=== PATIENT | female | born 1975 | race African-American/Black ===

== ENCOUNTER 2016-04-04 09:46 | Inpatient (IN) | payer OTHER ==
[2016-04-04 17:24] VITALS: BMI 34.9
--- NOTE | 2016-04-04 18:16 | HP ---
Admission [facility] - [facility] Chief Complaint: I WANT TO GO TO REHAB Allergies/Adverse Reactions: Allergies Allergy/AdvReac Type Severity Reaction Status Date / Time hydromorphone HCl Allergy PALPITATION Verified 04/04/16 17:11 [From Dilaudid] History of Present Illness: 41 YEARS OLD FEMALE WITH LONG HISTORY OF MARIJUANA AND NICOTINE DEPENDENCE, HAS ASTHMA HYPERTENSION HYPERTHYROID DIABETES II CVA 2013 WEAKNESS OF THE RIGHT SIDE WEAR EYE GLASSES FOR READING DENIES MENTAL ILLNESS IS ADMITTED TO REHAB Exam Limitations: No Limitations - Ebola screening Have you traveled outside of the country in the last 21 days: No Have you had contact with anyone from an Ebola affected area: No Have you been sick,other than usual withdrawal symptoms: No Do you have a fever: No - Review of Systems Constitutional: Weight Stable EENT: reports: Other (EYE GLASSES) Respiratory: reports: No Symptoms reported Cardiac: reports: No Symptoms Reported GI: reports: No Symptoms Reported : reports: No Symptoms Reported, Other (HISTORY OF KIDNEY STONE 2012 - ) Musculoskeletal: reports: No Symptoms Reported Integumentary: reports: No Symptoms Reported Neuro: reports: No Symptoms reported Endocrine: reports: Intolerance to Heat Hematology: reports: No Symptoms Reported Psychiatric: reports: Judgement Intact, Mood/Affect Appropiate, Orientated x3 Other Systems: Reviewed and Negative Patient History - Patient Medical History Hx Anemia: No Hx Asthma: Yes Hx Chronic Obstructive Pulmonary Disease (COPD): No Hx Cancer: No Hx Cardiac Disorders: No Hx Congestive Heart Failure: No Hx Hypertension: Yes Hx Hypercholesterolemia: No Hx Pacemaker: No HX Cerebrovascular Accident: Yes (10/2013) Hx Seizures: No Hx Dementia: No Hx Diabetes: Yes Hx Gastrointestinal Disorders: No Hx Liver Disease: No Hx Genitourinary Disorders: Yes ( KIDNEY STONES 2012) Hx Sexually Transmitted Disorders: No Hx Renal Disease (ESRD): No Hx Thyroid Disease: Yes (Graves disease, hyperthyroidism) Hx Human Immunodeficiency Virus (HIV): No Hx Hepatitis C: No Hx Depression: No Hx Suicide Attempt: No Hx Bipolar Disorder: No Hx Schizophrenia: No - Patient Surgical History Past Surgical History: Yes Hx Neurologic Surgery: No Hx Cataract Extraction: No Hx Cardiac Surgery: No Hx Lung Surgery: No Hx Breast Surgery: No Hx Breast Biopsy: No Hx Abdominal Surgery: Yes (HERNIA) Hx Appendectomy: No Hx Cholecystectomy: No Hx Genitourinary Surgery: No Hx Section: Yes (2014, 2012, 2010, 2004, 2001, 1993, 1989) Hx Orthopedic Surgery: No Hx Hysterectomy: No Anesthesia Reaction: No - PPD History Previous Implant?: Yes Documented Results: Negative w/o proof Implanted On Prior R Admission?: No PPD to be Administered?: Yes - Reproductive History Patient is a Female of Child Bearing Age (11 -55 yrs old): Yes Last Menstrual Period: 03/26/16 Patient : No - Smoking Cessation Smoking history: Former smoker Have you smoked in the past 12 months: No Aproximately how many cigarettes per day: 0 Cigars Per Day: 0 Hx Chewing Tobacco Use: No Initiated information on smoking cessation: No 'Breaking Loose' booklet given: 04/04/16 - Substance & Tx. History Hx Alcohol Use: No Hx Substance Use: Yes Substance Use Type: Marijuana Hx Substance Use Treatment: Yes - Substances Abused Marijuana/Hashish Route: Smoking Frequency: 3-6 times per week Amount used: JOINTS X 3 Age of first use: 12 Date of Last Use: 03/30/16 Family Disease History - Family Disease History Family Disease History: Other: Father (htn) Admission Physical Exam S - Vital Signs Vital Signs: Vital Signs - 24 hr 04/04/16 17:22 Temperature 97.0 F L Pulse Rate 83 Respiratory 20 Rate Blood Pressure 141/85 - Physical General Appearance: Yes: No Apparent Distress, Nourished, Appropriately Dressed HEENTM: Yes: Hearing grossly Normal, Normal ENT Inspection, Normocephalic, Normal Voice Respiratory: Yes: Chest Non-Tender, Lungs Clear, Normal Breath Sounds, No Respiratory Distress, No Accessory Muscle Use Neck: Yes: Supple, Trachea in good position Breast: Yes: Breasts Symetrical Cardiology: Yes: Regular Rhythm, Regular Rate, S1, S2 Abdominal: Yes: Non Tender, Soft Genitourinary: Yes: Within Normal Limits Back: Yes: Normal Inspection Musculoskeletal: Yes: full range of Motion, Gait Steady Extremities: Yes: Normal Inspection, Normal Range of Motion, Non-Tender Neurological: Yes: Fully Oriented, Alert, Motor Strength 5/5, Normal Mood/Affect , Normal Response Integumentary: Yes: Normal Color, Warm Lymphatic: Yes: Within Normal Limits - Diagnostic (1) Cerebrovascular accident Current Visit: Yes Status: Chronic Comment: 2014 RIGHT SIDE WEAKNESS CANE (2) HTN (hypertension) Current Visit: Yes Status: Acute Qualifiers: Hypertension type: essential hypertension Qualified Code(s): I10 - Essential (primary) hypertension (3) Hyperthyroidism Current Visit: Yes Status: Acute (4) Cannabis dependence, uncomplicated Current Visit: Yes Status: Acute (5) Asthma Current Visit: Yes Status: Acute Qualifiers: Asthma severity: mild intermittent Asthma complication type: with status asthmaticus Qualified Code(s): J45.22 - Mild intermittent asthma with status asthmaticus Cleared for Admission S - Detox or Rehab [facility] Level of Care: Observation Bed Claeared for Rehab Admission: Yes [facility] Breath Alcohol Content Breath Alcohol Content: 0 Urine Pregancy Test - Result Urine Test Results: Negative- NO Line Present Urine Drug Screen - Control Is Test Valid: Yes - Results Drug Screen Negative: Yes
[2016-04-04] MEDS ORDERED: MENTHOL/PHENOL 1 EACH UD MM PRN (18:34)
[2016-04-04] MEDS ORDERED: P-EPHED 60MG/TRIPROLIDI 2.5MG TABLET PO PRN (18:34)
[2016-04-04] MEDS ORDERED: MAGNESIUM HYDROX 2400MG/30ML ORAL SUSPENSION 30 ML CUP PO PRN (18:34)
[2016-04-04] MEDS ORDERED: guaiFENesin/D-METHORPHAN HB 10 ML UNIT-DOSE CUPS PO PRN (18:34)
[2016-04-04] MEDS ORDERED: MAG HYDROX/AL HYDROX/SIMETH 30 ML UNIT-DOSE CUP PO PRN (18:34)
[2016-04-04] MEDS ORDERED: LOPERAMIDE HCL 2 MG CAPSULE PO PRN (18:34)
[2016-04-04] MEDS ORDERED: MAGNESIUM CITRATE 300 ML BOTTLE PO PRN (18:34)
[2016-04-04] MEDS ORDERED: hydrOXYzine PAMOATE 50 MG CAPSULE (FP) PO PRN (18:34)
[2016-04-04] MEDS ORDERED: ALBUTEROL SO4 6.7 GM HFA INHALER IH PRN (18:36)
[2016-04-04] MEDS ORDERED: ALBUTEROL SO4 2.5/IPRATROPIUM 0.5 INH SOL 3 ML VIAL.NEB. NEB PRN (18:36)
[2016-04-04] MEDS ORDERED: TUBERCULIN PPD 5 TU/0.1ML VIAL ID ONE (20:39)
[2016-04-04] MEDS: METHIMAZOLE 10 MG TABLET (FP) PO SCH (21:37)
[2016-04-04] MEDS: THIAMINE HCL 100 MG TABLET (FP) PO SCH (21:37)
[2016-04-04] MEDS: INSULIN DETEMIR 100 UNITS/ML MDV SQ SCH (21:39)
[2016-04-04] MEDS: INSULIN SLIDING SCALE (NOVOLOG) 1 VIAL SQ SCH (22:42)
[2016-04-04 23:18] LABS: URINE APPEARANCE SLCLOUDY; URINE BILIRUBIN NEGATIVE (NEGATIVE); URINE BLOOD NEGATIVE (NEGATIVE); URINE COLOR YELLOW; URINE GLUCOSE (UA) 3+ (NEGATIVE); URINE KETONE NEGATIVE (NEGATIVE); URINE NITRITE NEGATIVE (NEGATIVE); URINE PROTEIN NEGATIVE (NEGATIVE); URINE UROBILINOGEN NEGATIVE E.U./dl (0.2-1.0)
[2016-04-04 23:20] LABS: URINE LEUK ESTERASE 1+ (NEGATIVE)
[2016-04-04 23:23] LABS: URINE MUCUS MANY; URINE RBC 1 /hpf (0-3); URINE WBC 9 /hpf (3-5)
[2016-04-05] MEDS: METHIMAZOLE 10 MG TABLET (FP) PO SCH ×3 (06:16→21:32)
[2016-04-05] MEDS: glipiZIDE 10 MG TABLET (FP) PO SCH ×2 (06:16→16:32)
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
[2016-04-05] MEDS: INSULIN SLIDING SCALE (NOVOLOG) 1 VIAL SQ SCH ×4 (06:56→21:35)
[2016-04-05] MEDS: ASPIRIN 81 MG CHEWABLE TABLETS PO SCH (09:46)
[2016-04-05] MEDS: PRENATAL VITAMINS W/ FOLIC ACID TABLET (FP) PO SCH (09:47)
[2016-04-05] MEDS: NIFEdipine E.R. 90 MG TABLET (FP) PO SCH (09:47)
[2016-04-05 10:24] LABS: ALBUMIN 3.1 g/dl (3.4-5.0); ANION GAP 8 (8-16); BILIRUBIN,TOTAL 0.3 mg/dL (0.2-1.0); CO2 29 mmol/L (21-32); GLUCOSE,RANDOM 184 mg/dL (74-106); SGOT/AST 14 U/L (15-37); SGPT/ALT 23 U/L (12-78); TOT PROT 6.8 g/dl (6.4-8.2)
[2016-04-05 10:25] LABS: MCH 25.5 pg (25.7-33.7); MCHC 31.3 g/dl (32.0-36.0); MEAN CELL VOLUME 81.2 fl (80-96); MEAN PLT VOLUME 8.6 fl (7.5-11.1); PLATELET COUNT 218 K/MM3 (134-434); RDW 13.5 % (11.6-15.6); WHITE BLOOD COUNT 5.6 K/mm3 (4.0-10.0)
[2016-04-05 10:26] LABS: ALK PHOS 79 U/L (45-117); CALCIUM 9.1 mg/dL (8.5-10.1); CREATININE 0.6 mg/dL (0.55-1.02)
[2016-04-05 11:04] LABS: HIV 1 & 2 AB NEGATIVE; HIV 1 AGp24 NEGATIVE
[2016-04-05 13:11] LABS: FREE T4 1.45 ng/dl (0.76-1.46); T3 UPTAKE 36.3 % (30-39); THYROID STIMULATING HORMONE < 0.01 uIU/ml (0.358-3.74)
[2016-04-05] MEDS ORDERED: INSULIN (NOVOLOG) ASPART 100 UNITS/ML 10ML VIAL ONE ×2 (16:32→21:34)
--- NOTE | 2016-04-05 17:43 | EKG ---
Test Reason : Blood Pressure : / mmHG Vent. Rate : 081 BPM Atrial Rate : 081 BPM P-R Int : 150 ms QRS Dur : 080 ms QT Int : 388 ms P-R-T Axes : 054 038 019 degrees QTc Int : 450 ms NORMAL SINUS RHYTHM NORMAL ECG WHEN COMPARED WITH ECG OF 27-NOV-2013 16:32, NO SIGNIFICANT CHANGE WAS FOUND Confirmed by ABDULLAHI DAMON MD ([id number]) on 04/05/2016 5:43:23 PM Referred By: Confirmed By:ABDULLAHI DAMON MD
[2016-04-05] MEDS: ACETAMINOPHEN 325 MG TABLET (FP) PO PRN (20:16)
[2016-04-05] MEDS: THIAMINE HCL 100 MG TABLET (FP) PO SCH (21:32)
[2016-04-05] MEDS: INSULIN DETEMIR 100 UNITS/ML MDV SQ SCH (21:35)
[2016-04-06] MEDS: METHIMAZOLE 10 MG TABLET (FP) PO SCH ×3 (06:24→21:21)
[2016-04-06] MEDS: glipiZIDE 10 MG TABLET (FP) PO SCH ×2 (06:24→16:32)
[2016-04-06] MEDS: INSULIN SLIDING SCALE (NOVOLOG) 1 VIAL SQ SCH ×4 (06:25→21:23)
[2016-04-06] MEDS: ASPIRIN 81 MG CHEWABLE TABLETS PO SCH (10:03)
[2016-04-06] MEDS: NIFEdipine E.R. 90 MG TABLET (FP) PO SCH (10:03)
[2016-04-06] MEDS: PRENATAL VITAMINS W/ FOLIC ACID TABLET (FP) PO SCH (10:04)
[2016-04-06] MEDS ORDERED: INSULIN (NOVOLOG) ASPART 100 UNITS/ML 10ML VIAL ONE ×3 (11:40→21:21)
[2016-04-06] MEDS: THIAMINE HCL 100 MG TABLET (FP) PO SCH (21:21)
[2016-04-06] MEDS: INSULIN DETEMIR 100 UNITS/ML MDV SQ SCH (21:22)
[2016-04-07] MEDS: METHIMAZOLE 10 MG TABLET (FP) PO SCH ×3 (06:25→21:31)
[2016-04-07] MEDS: glipiZIDE 10 MG TABLET (FP) PO SCH ×2 (07:26→17:04)
[2016-04-07] MEDS: INSULIN SLIDING SCALE (NOVOLOG) 1 VIAL SQ SCH ×4 (07:27→21:28)
[2016-04-07] MEDS: NIFEdipine E.R. 90 MG TABLET (FP) PO SCH (09:55)
[2016-04-07] MEDS: ASPIRIN 81 MG CHEWABLE TABLETS PO SCH (09:55)
[2016-04-07] MEDS: PRENATAL VITAMINS W/ FOLIC ACID TABLET (FP) PO SCH (09:55)
[2016-04-07] MEDS: NICOTINE 21 MG/24 HOURS TOPICAL PATCH TD SCH (11:59)
[2016-04-07] MEDS ORDERED: INSULIN (NOVOLOG) ASPART 100 UNITS/ML 10ML VIAL ONE ×3 (12:01→22:11)
[2016-04-07] MEDS ORDERED: PT OWN MED DRAWER 7, Y5N ONE (19:43)
[2016-04-07] MEDS: THIAMINE HCL 100 MG TABLET (FP) PO SCH (21:29)
[2016-04-07] MEDS: INSULIN DETEMIR 100 UNITS/ML MDV SQ SCH (21:31)
[2016-04-08] MEDS: INSULIN SLIDING SCALE (NOVOLOG) 1 VIAL SQ SCH ×4 (06:03→21:12)
[2016-04-08] MEDS: METHIMAZOLE 10 MG TABLET (FP) PO SCH ×3 (06:04→21:12)
[2016-04-08] MEDS: glipiZIDE 10 MG TABLET (FP) PO SCH ×2 (06:04→16:58)
[2016-04-08] MEDS: NICOTINE 21 MG/24 HOURS TOPICAL PATCH TD SCH (09:58)
[2016-04-08] MEDS: ASPIRIN 81 MG CHEWABLE TABLETS PO SCH (09:58)
[2016-04-08] MEDS: NIFEdipine E.R. 90 MG TABLET (FP) PO SCH (09:58)
[2016-04-08] MEDS: PRENATAL VITAMINS W/ FOLIC ACID TABLET (FP) PO SCH (09:58)
[2016-04-08] MEDS: INSULIN DETEMIR 100 UNITS/ML MDV SQ SCH (21:12)
[2016-04-08] MEDS: THIAMINE HCL 100 MG TABLET (FP) PO SCH (21:13)
[2016-04-08] MEDS ORDERED: INSULIN (NOVOLOG) ASPART 100 UNITS/ML 10ML VIAL ONE (22:17)
[2016-04-09] MEDS: glipiZIDE 10 MG TABLET (FP) PO SCH ×2 (06:57→16:44)
[2016-04-09] MEDS: INSULIN SLIDING SCALE (NOVOLOG) 1 VIAL SQ SCH ×4 (06:58→23:17)
[2016-04-09] MEDS: METHIMAZOLE 10 MG TABLET (FP) PO SCH ×3 (07:20→21:20)
[2016-04-09] MEDS: ASPIRIN 81 MG CHEWABLE TABLETS PO SCH (09:51)
[2016-04-09] MEDS: PRENATAL VITAMINS W/ FOLIC ACID TABLET (FP) PO SCH (09:51)
[2016-04-09] MEDS: NIFEdipine E.R. 90 MG TABLET (FP) PO SCH (09:51)
[2016-04-09] MEDS: NICOTINE 21 MG/24 HOURS TOPICAL PATCH TD SCH (09:52)
[2016-04-09] MEDS ORDERED: INSULIN (NOVOLOG) ASPART 100 UNITS/ML 10ML VIAL ONE ×2 (11:29→16:44)
[2016-04-09] MEDS: THIAMINE HCL 100 MG TABLET (FP) PO SCH (21:20)
[2016-04-09] MEDS: INSULIN DETEMIR 100 UNITS/ML MDV SQ SCH (21:22)
[2016-04-10] MEDS: glipiZIDE 10 MG TABLET (FP) PO SCH ×2 (07:09→16:44)
[2016-04-10] MEDS: METHIMAZOLE 10 MG TABLET (FP) PO SCH ×3 (07:09→21:15)
[2016-04-10] MEDS: INSULIN SLIDING SCALE (NOVOLOG) 1 VIAL SQ SCH ×4 (07:09→21:15)
[2016-04-10] MEDS: NICOTINE 21 MG/24 HOURS TOPICAL PATCH TD SCH (09:39)
[2016-04-10] MEDS: PRENATAL VITAMINS W/ FOLIC ACID TABLET (FP) PO SCH (09:39)
[2016-04-10] MEDS: NIFEdipine E.R. 90 MG TABLET (FP) PO SCH (09:39)
[2016-04-10] MEDS: ASPIRIN 81 MG CHEWABLE TABLETS PO SCH (09:39)
[2016-04-10] MEDS ORDERED: INSULIN (NOVOLOG) ASPART 100 UNITS/ML 10ML VIAL ONE ×2 (11:28→16:45)
[2016-04-10] MEDS: NAPROXEN 500 MG TABLET (FP) PO SCH (21:14)
[2016-04-10] MEDS: INSULIN DETEMIR 100 UNITS/ML MDV SQ SCH (21:16)
[2016-04-10] MEDS: THIAMINE HCL 100 MG TABLET (FP) PO SCH (21:16)
[2016-04-11] MEDS: METHIMAZOLE 10 MG TABLET (FP) PO SCH ×3 (06:05→21:23)
[2016-04-11] MEDS: glipiZIDE 10 MG TABLET (FP) PO SCH ×2 (06:05→16:57)
[2016-04-11] MEDS: INSULIN SLIDING SCALE (NOVOLOG) 1 VIAL SQ SCH ×4 (06:06→21:22)
[2016-04-11] MEDS: NIFEdipine E.R. 90 MG TABLET (FP) PO SCH (10:22)
[2016-04-11] MEDS: NAPROXEN 500 MG TABLET (FP) PO SCH ×2 (10:22→21:22)
[2016-04-11] MEDS: PRENATAL VITAMINS W/ FOLIC ACID TABLET (FP) PO SCH (10:22)
[2016-04-11] MEDS: ASPIRIN 81 MG CHEWABLE TABLETS PO SCH (10:22)
[2016-04-11] MEDS: NICOTINE 21 MG/24 HOURS TOPICAL PATCH TD SCH (10:22)
[2016-04-11] MEDS ORDERED: INSULIN (NOVOLOG) ASPART 100 UNITS/ML 10ML VIAL ONE (19:07)
[2016-04-11] MEDS: INSULIN DETEMIR 100 UNITS/ML MDV SQ SCH (21:22)
[2016-04-11] MEDS: THIAMINE HCL 100 MG TABLET (FP) PO SCH (21:22)
[2016-04-12] MEDS: METHIMAZOLE 10 MG TABLET (FP) PO SCH ×3 (06:41→21:17)
[2016-04-12] MEDS: INSULIN SLIDING SCALE (NOVOLOG) 1 VIAL SQ SCH ×4 (07:13→21:14)
[2016-04-12] MEDS: glipiZIDE 10 MG TABLET (FP) PO SCH ×2 (07:13→16:53)
[2016-04-12] MEDS: ASPIRIN 81 MG CHEWABLE TABLETS PO SCH (09:48)
[2016-04-12] MEDS: PRENATAL VITAMINS W/ FOLIC ACID TABLET (FP) PO SCH (09:48)
[2016-04-12] MEDS: NAPROXEN 500 MG TABLET (FP) PO SCH ×2 (09:48→21:14)
[2016-04-12] MEDS: NIFEdipine E.R. 90 MG TABLET (FP) PO SCH (09:48)
[2016-04-12] MEDS: NICOTINE 21 MG/24 HOURS TOPICAL PATCH TD SCH (09:51)
[2016-04-12] MEDS: THIAMINE HCL 100 MG TABLET (FP) PO SCH (21:14)
[2016-04-12] MEDS: INSULIN DETEMIR 100 UNITS/ML MDV SQ SCH (21:14)
[2016-04-13] MEDS: METHIMAZOLE 10 MG TABLET (FP) PO SCH ×3 (06:39→21:09)
[2016-04-13] MEDS: glipiZIDE 10 MG TABLET (FP) PO SCH ×2 (07:22→16:54)
[2016-04-13] MEDS: INSULIN SLIDING SCALE (NOVOLOG) 1 VIAL SQ SCH ×4 (07:22→21:08)
[2016-04-13] MEDS: PRENATAL VITAMINS W/ FOLIC ACID TABLET (FP) PO SCH (09:52)
[2016-04-13] MEDS: NAPROXEN 500 MG TABLET (FP) PO SCH ×2 (09:53→21:08)
[2016-04-13] MEDS: ASPIRIN 81 MG CHEWABLE TABLETS PO SCH (09:53)
[2016-04-13] MEDS: NIFEdipine E.R. 90 MG TABLET (FP) PO SCH (09:53)
[2016-04-13] MEDS: NICOTINE 21 MG/24 HOURS TOPICAL PATCH TD SCH (09:53)
[2016-04-13] MEDS ORDERED: INSULIN (NOVOLOG) ASPART 100 UNITS/ML 10ML VIAL ONE (11:49)
[2016-04-13] MEDS: THIAMINE HCL 100 MG TABLET (FP) PO SCH (21:08)
[2016-04-13] MEDS: INSULIN DETEMIR 100 UNITS/ML MDV SQ SCH (21:09)
[2016-04-14] MEDS: INSULIN SLIDING SCALE (NOVOLOG) 1 VIAL SQ SCH ×4 (06:57→21:26)
[2016-04-14] MEDS: glipiZIDE 10 MG TABLET (FP) PO SCH ×2 (06:57→16:45)
[2016-04-14] MEDS: METHIMAZOLE 10 MG TABLET (FP) PO SCH ×3 (06:57→21:24)
[2016-04-14] MEDS: NICOTINE 21 MG/24 HOURS TOPICAL PATCH TD SCH (09:52)
[2016-04-14] MEDS: NIFEdipine E.R. 90 MG TABLET (FP) PO SCH (09:52)
[2016-04-14] MEDS: NAPROXEN 500 MG TABLET (FP) PO SCH ×2 (09:52→21:24)
[2016-04-14] MEDS: ASPIRIN 81 MG CHEWABLE TABLETS PO SCH (09:52)
[2016-04-14] MEDS: PRENATAL VITAMINS W/ FOLIC ACID TABLET (FP) PO SCH (09:53)
[2016-04-14] MEDS: THIAMINE HCL 100 MG TABLET (FP) PO SCH (21:24)
[2016-04-14] MEDS ORDERED: INSULIN (NOVOLOG) ASPART 100 UNITS/ML 10ML VIAL ONE (21:24)
[2016-04-14] MEDS: INSULIN DETEMIR 100 UNITS/ML MDV SQ SCH (21:26)
[2016-04-15] MEDS: METHIMAZOLE 10 MG TABLET (FP) PO SCH ×3 (06:43→21:32)
[2016-04-15] MEDS: INSULIN SLIDING SCALE (NOVOLOG) 1 VIAL SQ SCH ×4 (07:22→21:35)
[2016-04-15] MEDS: glipiZIDE 10 MG TABLET (FP) PO SCH ×2 (07:22→16:44)
[2016-04-15] MEDS: NAPROXEN 500 MG TABLET (FP) PO SCH ×2 (10:04→21:32)
[2016-04-15] MEDS: NICOTINE 21 MG/24 HOURS TOPICAL PATCH TD SCH (10:04)
[2016-04-15] MEDS: NIFEdipine E.R. 90 MG TABLET (FP) PO SCH (10:04)
[2016-04-15] MEDS: PRENATAL VITAMINS W/ FOLIC ACID TABLET (FP) PO SCH (10:04)
[2016-04-15] MEDS: ASPIRIN 81 MG CHEWABLE TABLETS PO SCH (10:04)
[2016-04-15] MEDS: THIAMINE HCL 100 MG TABLET (FP) PO SCH (21:32)
[2016-04-15] MEDS ORDERED: INSULIN (NOVOLOG) ASPART 100 UNITS/ML 10ML VIAL ONE (21:32)
[2016-04-15] MEDS: diphenhydrAMINE HCL 50 MG CAPSULE PO PRN (21:33)
[2016-04-15] MEDS: INSULIN DETEMIR 100 UNITS/ML MDV SQ SCH (21:34)
[2016-04-16] MEDS: METHIMAZOLE 10 MG TABLET (FP) PO SCH ×3 (06:23→21:36)
[2016-04-16] MEDS: glipiZIDE 10 MG TABLET (FP) PO SCH ×2 (07:09→16:48)
[2016-04-16] MEDS: INSULIN SLIDING SCALE (NOVOLOG) 1 VIAL SQ SCH ×4 (07:09→21:35)
[2016-04-16] MEDS: ASPIRIN 81 MG CHEWABLE TABLETS PO SCH (10:08)
[2016-04-16] MEDS: PRENATAL VITAMINS W/ FOLIC ACID TABLET (FP) PO SCH (10:08)
[2016-04-16] MEDS: NAPROXEN 500 MG TABLET (FP) PO SCH ×2 (10:08→21:36)
[2016-04-16] MEDS: NIFEdipine E.R. 90 MG TABLET (FP) PO SCH (10:08)
[2016-04-16] MEDS: NICOTINE 21 MG/24 HOURS TOPICAL PATCH TD SCH (10:09)
[2016-04-16] MEDS: diphenhydrAMINE HCL 50 MG CAPSULE PO PRN (21:36)
[2016-04-16] MEDS: INSULIN DETEMIR 100 UNITS/ML MDV SQ SCH (21:36)
[2016-04-16] MEDS: THIAMINE HCL 100 MG TABLET (FP) PO SCH (21:36)
[2016-04-16] MEDS ORDERED: INSULIN (NOVOLOG) ASPART 100 UNITS/ML 10ML VIAL ONE (22:26)
[2016-04-17] MEDS: ACETAMINOPHEN 325 MG TABLET (FP) PO PRN (06:29)
[2016-04-17] MEDS: METHIMAZOLE 10 MG TABLET (FP) PO SCH ×3 (06:30→21:04)
[2016-04-17] MEDS: glipiZIDE 10 MG TABLET (FP) PO SCH ×2 (07:26→16:48)
[2016-04-17] MEDS: INSULIN SLIDING SCALE (NOVOLOG) 1 VIAL SQ SCH ×4 (07:26→21:06)
[2016-04-17] MEDS: NIFEdipine E.R. 90 MG TABLET (FP) PO SCH (10:13)
[2016-04-17] MEDS: NAPROXEN 500 MG TABLET (FP) PO SCH ×2 (10:13→21:04)
[2016-04-17] MEDS: NICOTINE 21 MG/24 HOURS TOPICAL PATCH TD SCH (10:13)
[2016-04-17] MEDS: PRENATAL VITAMINS W/ FOLIC ACID TABLET (FP) PO SCH (10:13)
[2016-04-17] MEDS: ASPIRIN 81 MG CHEWABLE TABLETS PO SCH (10:13)
[2016-04-17] MEDS ORDERED: INSULIN (NOVOLOG) ASPART 100 UNITS/ML 10ML VIAL ONE (11:57)
[2016-04-17] MEDS: THIAMINE HCL 100 MG TABLET (FP) PO SCH (21:04)
[2016-04-17] MEDS: diphenhydrAMINE HCL 50 MG CAPSULE PO PRN (21:04)
[2016-04-17] MEDS: INSULIN DETEMIR 100 UNITS/ML MDV SQ SCH (21:06)
[2016-04-18] MEDS: METHIMAZOLE 10 MG TABLET (FP) PO SCH ×3 (06:30→21:17)
[2016-04-18] MEDS: glipiZIDE 10 MG TABLET (FP) PO SCH ×2 (06:30→16:51)
[2016-04-18] MEDS: INSULIN SLIDING SCALE (NOVOLOG) 1 VIAL SQ SCH ×4 (06:31→21:18)
[2016-04-18] MEDS: ASPIRIN 81 MG CHEWABLE TABLETS PO SCH (10:08)
[2016-04-18] MEDS: PRENATAL VITAMINS W/ FOLIC ACID TABLET (FP) PO SCH (10:09)
[2016-04-18] MEDS: NIFEdipine E.R. 90 MG TABLET (FP) PO SCH (10:09)
[2016-04-18] MEDS: NICOTINE 21 MG/24 HOURS TOPICAL PATCH TD SCH (10:09)
[2016-04-18] MEDS: NAPROXEN 500 MG TABLET (FP) PO SCH ×2 (10:09→21:17)
[2016-04-18] MEDS ORDERED: INSULIN (NOVOLOG) ASPART 100 UNITS/ML 10ML VIAL ONE (21:16)
[2016-04-18] MEDS: diphenhydrAMINE HCL 50 MG CAPSULE PO PRN (21:17)
[2016-04-18] MEDS: THIAMINE HCL 100 MG TABLET (FP) PO SCH (21:17)
[2016-04-18] MEDS: INSULIN DETEMIR 100 UNITS/ML MDV SQ SCH (21:18)
[2016-04-19] MEDS: glipiZIDE 10 MG TABLET (FP) PO SCH ×2 (06:09→16:57)
[2016-04-19] MEDS: METHIMAZOLE 10 MG TABLET (FP) PO SCH ×3 (06:09→21:42)
[2016-04-19] MEDS: INSULIN SLIDING SCALE (NOVOLOG) 1 VIAL SQ SCH ×4 (06:38→21:44)
--- NOTE | 2016-04-19 07:53 | PN ---
Psychiatric Progress Note Vital Signs: Vital Signs Period Temp Pulse Resp BP Sys/Hernandez Pulse Ox Last 24 Hr 98.3 F 63-64 16-18 110-127/67-69 ROS: Asthma, HTN, CVA, Hyperthyroidism Current Medications: Active Medications Generic Name Dose Route Start Last Admin Trade Name Freq PRN Reason Stop Dose Admin Acetaminophen 650 mg 04/04/16 18:34 04/17/16 06:29 Tylenol - PO 650 mg Q4H PRN Administration PAIN Al Hydroxide/Mg Hydroxide 30 ml 04/04/16 18:34 04/07/16 12:01 Mylanta Oral Suspension - PO 30 ml Q6H PRN Administration DYSPEPSIA Albuterol Sulfate 0 puff 04/04/16 18:36 Ventolin Hfa Inhaler - IH Q4H PRN SHORT OF BREATH/WHEEZING Aspirin 81 mg 04/05/16 10:00 04/18/16 10:08 Asa - PO 81 mg DAILY HERBIE Administration Diphenhydramine HCl 50 mg 04/04/16 22:00 04/18/16 21:17 Benadryl - PO 50 mg HSMR1 PRN Administration INSOMNIA Eucalyptus/Menthol/Phenol/Sorbitol 1 each 04/04/16 18:34 Cepastat Lozenge - MM Q4H PRN SORE THROAT Glipizide 10 mg 04/05/16 07:00 04/19/16 06:09 Glucotrol - PO 10 mg BID@0700,1630 HERBIE Administration Guaifenesin 10 ml 04/04/16 18:34 Robitussin Dm - PO Q6H PRN COUGH Hydroxyzine Pamoate 50 mg 04/04/16 18:34 Vistaril - PO Q4H PRN AGITATION Insulin Aspart 1 vial 04/04/16 22:00 04/19/16 06:38 Novolog Vial Sliding Scale - SQ Not Given ACHS [facility] Protocol Insulin Detemir 10 units 04/04/16 22:00 04/18/16 21:18 Levemir Vial SQ 10 units HS HERBIE Administration Loperamide HCl 4 mg 04/04/16 18:34 Imodium - PO Q6H PRN DIARRHEA Magnesium Citrate 300 ml 04/04/16 18:34 04/12/16 21:17 Citroma - PO 300 ml Q48H PRN Administration CONSTIPATION Magnesium Hydroxide 30 ml 04/04/16 18:34 04/07/16 21:30 Milk Of Magnesia - PO 30 ml DAILY PRN Administration CONSTIPATION Methimazole 10 mg 04/04/16 22:00 04/19/16 06:09 Tapazole - PO 10 mg TID HERBIE Administration Naproxen 500 mg 04/10/16 22:00 04/18/16 21:17 Naprosyn - PO 500 mg BID HERBIE Administration Nicotine 21 mg 04/07/16 10:45 04/18/16 10:09 Nicoderm Patch - TD 21 mg DAILY HERBIE Administration Nifedipine 90 mg 04/05/16 10:00 04/18/16 10:09 Procardia Xl - PO 90 mg DAILY HERBIE Administration Multivit/Folic Acid/Iron 1 tab 04/05/16 10:00 04/18/16 10:09 Vitamins (Sjr) - PO 1 tab DAILY HERBIE Administration Pseudoephedrine/Triprolidine 1 combo 04/04/16 18:34 Actifed - PO TID PRN NASAL CONGESTION Thiamine HCl 100 mg 04/04/16 22:00 04/18/16 21:17 Vitamin B1 - PO 100 mg HS HERBIE Administration Psychiatric Treatment Plan - Problem List (1) Cannabis dependence, uncomplicated Current Visit: Yes (2) Asthma Current Visit: Yes Qualifiers: Asthma severity: mild intermittent Asthma complication type: with status asthmaticus Qualified Code(s): J45.22 - Mild intermittent asthma with status asthmaticus (3) HTN (hypertension) Current Visit: Yes Qualifiers: Hypertension type: essential hypertension Qualified Code(s): I10 - Essential (primary) hypertension (4) Hyperthyroidism Current Visit: Yes (5) Cerebrovascular accident Current Visit: Yes Comment: 2013 RIGHT SIDE WEAKNESS CANE (6) section Current Visit: No (7) Asthma attack Current Visit: No (8) UTI (lower urinary tract infection) Current Visit: No
[2016-04-19] MEDS: PRENATAL VITAMINS W/ FOLIC ACID TABLET (FP) PO SCH (10:15)
[2016-04-19] MEDS: NAPROXEN 500 MG TABLET (FP) PO SCH ×2 (10:15→21:42)
[2016-04-19] MEDS: NICOTINE 21 MG/24 HOURS TOPICAL PATCH TD SCH (10:15)
[2016-04-19] MEDS: NIFEdipine E.R. 90 MG TABLET (FP) PO SCH (10:15)
[2016-04-19] MEDS: ASPIRIN 81 MG CHEWABLE TABLETS PO SCH (10:15)
[2016-04-19] MEDS: diphenhydrAMINE HCL 50 MG CAPSULE PO PRN (21:42)
[2016-04-19] MEDS ORDERED: INSULIN (NOVOLOG) ASPART 100 UNITS/ML 10ML VIAL ONE (21:43)
[2016-04-19] MEDS: INSULIN DETEMIR 100 UNITS/ML MDV SQ SCH (21:44)
[2016-04-19] MEDS: THIAMINE HCL 100 MG TABLET (FP) PO SCH (21:45)
[2016-04-20] MEDS: glipiZIDE 10 MG TABLET (FP) PO SCH ×2 (06:31→16:54)
[2016-04-20] MEDS: INSULIN SLIDING SCALE (NOVOLOG) 1 VIAL SQ SCH ×4 (06:32→21:26)
[2016-04-20] MEDS: METHIMAZOLE 10 MG TABLET (FP) PO SCH ×3 (06:32→21:27)
[2016-04-20] MEDS: PRENATAL VITAMINS W/ FOLIC ACID TABLET (FP) PO SCH (09:57)
[2016-04-20] MEDS: ASPIRIN 81 MG CHEWABLE TABLETS PO SCH (09:57)
[2016-04-20] MEDS: NIFEdipine E.R. 90 MG TABLET (FP) PO SCH (09:57)
[2016-04-20] MEDS: NAPROXEN 500 MG TABLET (FP) PO SCH ×2 (09:57→21:25)
[2016-04-20] MEDS: NICOTINE 21 MG/24 HOURS TOPICAL PATCH TD SCH (09:58)
[2016-04-20] MEDS: THIAMINE HCL 100 MG TABLET (FP) PO SCH (21:25)
[2016-04-20] MEDS: diphenhydrAMINE HCL 50 MG CAPSULE PO PRN (21:25)
[2016-04-20] MEDS: INSULIN DETEMIR 100 UNITS/ML MDV SQ SCH (21:26)
[2016-04-21] MEDS: glipiZIDE 10 MG TABLET (FP) PO SCH ×2 (06:38→16:59)
[2016-04-21] MEDS: METHIMAZOLE 10 MG TABLET (FP) PO SCH ×3 (06:38→21:41)
[2016-04-21] MEDS: INSULIN SLIDING SCALE (NOVOLOG) 1 VIAL SQ SCH ×4 (06:38→21:42)
[2016-04-21] MEDS: ACETAMINOPHEN 325 MG TABLET (FP) PO PRN (08:22)
[2016-04-21] MEDS: NAPROXEN 500 MG TABLET (FP) PO SCH ×2 (10:02→21:41)
[2016-04-21] MEDS: ASPIRIN 81 MG CHEWABLE TABLETS PO SCH (10:02)
[2016-04-21] MEDS: NIFEdipine E.R. 90 MG TABLET (FP) PO SCH (10:02)
[2016-04-21] MEDS: NICOTINE 21 MG/24 HOURS TOPICAL PATCH TD SCH (10:03)
[2016-04-21] MEDS: PRENATAL VITAMINS W/ FOLIC ACID TABLET (FP) PO SCH (10:03)
[2016-04-21] MEDS: diphenhydrAMINE HCL 50 MG CAPSULE PO PRN (21:41)
[2016-04-21] MEDS: THIAMINE HCL 100 MG TABLET (FP) PO SCH (21:41)
[2016-04-21] MEDS: INSULIN DETEMIR 100 UNITS/ML MDV SQ SCH (21:42)
[2016-04-22] MEDS: INSULIN SLIDING SCALE (NOVOLOG) 1 VIAL SQ SCH ×4 (06:30→21:08)
[2016-04-22] MEDS: METHIMAZOLE 10 MG TABLET (FP) PO SCH ×3 (06:30→21:08)
[2016-04-22] MEDS: glipiZIDE 10 MG TABLET (FP) PO SCH ×2 (06:30→16:47)
[2016-04-22] MEDS: NAPROXEN 500 MG TABLET (FP) PO SCH ×2 (10:50→21:08)
[2016-04-22] MEDS: NIFEdipine E.R. 90 MG TABLET (FP) PO SCH (10:50)
[2016-04-22] MEDS: PRENATAL VITAMINS W/ FOLIC ACID TABLET (FP) PO SCH (10:50)
[2016-04-22] MEDS: ASPIRIN 81 MG CHEWABLE TABLETS PO SCH (10:51)
[2016-04-22] MEDS: NICOTINE 21 MG/24 HOURS TOPICAL PATCH TD SCH (10:51)
[2016-04-22] MEDS: INSULIN DETEMIR 100 UNITS/ML MDV SQ SCH (21:08)
[2016-04-22] MEDS: THIAMINE HCL 100 MG TABLET (FP) PO SCH (21:08)
[2016-04-22] MEDS: diphenhydrAMINE HCL 50 MG CAPSULE PO PRN (21:09)
[2016-04-23] MEDS: METHIMAZOLE 10 MG TABLET (FP) PO SCH ×3 (06:56→21:17)
[2016-04-23] MEDS: glipiZIDE 10 MG TABLET (FP) PO SCH ×2 (06:56→16:54)
[2016-04-23] MEDS: INSULIN SLIDING SCALE (NOVOLOG) 1 VIAL SQ SCH ×4 (06:58→21:21)
[2016-04-23] MEDS: ASPIRIN 81 MG CHEWABLE TABLETS PO SCH (09:31)
[2016-04-23] MEDS: PRENATAL VITAMINS W/ FOLIC ACID TABLET (FP) PO SCH (09:31)
[2016-04-23] MEDS: NAPROXEN 500 MG TABLET (FP) PO SCH ×2 (09:31→21:17)
[2016-04-23] MEDS: NIFEdipine E.R. 90 MG TABLET (FP) PO SCH (09:31)
[2016-04-23] MEDS: NICOTINE 21 MG/24 HOURS TOPICAL PATCH TD SCH (09:31)
[2016-04-23] MEDS ORDERED: INSULIN (NOVOLOG) ASPART 100 UNITS/ML 10ML VIAL ONE (16:54)
[2016-04-23] MEDS: THIAMINE HCL 100 MG TABLET (FP) PO SCH (21:17)
[2016-04-23] MEDS: diphenhydrAMINE HCL 50 MG CAPSULE PO PRN (21:18)
[2016-04-23] MEDS: INSULIN DETEMIR 100 UNITS/ML MDV SQ SCH (21:21)
[2016-04-24] MEDS: glipiZIDE 10 MG TABLET (FP) PO SCH ×2 (06:57→16:47)
[2016-04-24] MEDS: METHIMAZOLE 10 MG TABLET (FP) PO SCH ×3 (06:57→21:22)
[2016-04-24] MEDS: INSULIN SLIDING SCALE (NOVOLOG) 1 VIAL SQ SCH ×4 (06:59→22:37)
[2016-04-24] MEDS: NIFEdipine E.R. 90 MG TABLET (FP) PO SCH (09:32)
[2016-04-24] MEDS: PRENATAL VITAMINS W/ FOLIC ACID TABLET (FP) PO SCH (09:32)
[2016-04-24] MEDS: ASPIRIN 81 MG CHEWABLE TABLETS PO SCH (09:32)
[2016-04-24] MEDS: NICOTINE 21 MG/24 HOURS TOPICAL PATCH TD SCH (09:32)
[2016-04-24] MEDS: NAPROXEN 500 MG TABLET (FP) PO SCH ×2 (09:32→21:21)
[2016-04-24] MEDS: ACETAMINOPHEN 325 MG TABLET (FP) PO PRN ×3 (10:08→20:04)
[2016-04-24 10:28] VITALS: PULSE 64
[2016-04-24] MEDS: THIAMINE HCL 100 MG TABLET (FP) PO SCH (21:21)
[2016-04-24] MEDS: diphenhydrAMINE HCL 50 MG CAPSULE PO PRN (21:21)
[2016-04-24] MEDS: INSULIN DETEMIR 100 UNITS/ML MDV SQ SCH (21:23)
[2016-04-25] MEDS: METHIMAZOLE 10 MG TABLET (FP) PO SCH (06:24)
[2016-04-25 06:53] VITALS: BP 144/79; TEMP 97.8
[2016-04-25] MEDS: INSULIN SLIDING SCALE (NOVOLOG) 1 VIAL SQ SCH (07:22)
[2016-04-25] MEDS: glipiZIDE 10 MG TABLET (FP) PO SCH (07:22)
[2016-04-25] MEDS: NAPROXEN 500 MG TABLET (FP) PO SCH (09:36)
[2016-04-25] MEDS: PRENATAL VITAMINS W/ FOLIC ACID TABLET (FP) PO SCH (09:36)
[2016-04-25] MEDS: NICOTINE 21 MG/24 HOURS TOPICAL PATCH TD SCH (09:36)
[2016-04-25] MEDS: NIFEdipine E.R. 90 MG TABLET (FP) PO SCH (09:36)
[2016-04-25] MEDS: ASPIRIN 81 MG CHEWABLE TABLETS PO SCH (09:36)
--- NOTE | 2016-04-25 09:42 | PN ---
Psychiatric Progress Note Vital Signs: Vital Signs Period Temp Pulse Resp BP Sys/Hernandez Pulse Ox Last 24 Hr 97.8 F 64-64 18-18 140-144/76-79 Date of Session: 04/25/16 Chief Complaint:: Discharge visit HPI: Case of a 41 y/o AA female scheduled for discharge today after completion of rehabilitation for marijuana dependence. ROS: Medical issues were addressed.No somatic complaints offered.Intact cognition.Patient is ambulatory (with cane).No distress.Normal vitals. Current Medications: Active Medications Generic Name Dose Route Start Last Admin Trade Name Freq PRN Reason Stop Dose Admin Acetaminophen 650 mg 04/04/16 18:34 04/24/16 20:04 Tylenol - PO 650 mg Q4H PRN Administration PAIN Al Hydroxide/Mg Hydroxide 30 ml 04/04/16 18:34 04/07/16 12:01 Mylanta Oral Suspension - PO 30 ml Q6H PRN Administration DYSPEPSIA Albuterol Sulfate 0 puff 04/04/16 18:36 Ventolin Hfa Inhaler - IH Q4H PRN SHORT OF BREATH/WHEEZING Aspirin 81 mg 04/05/16 10:00 04/25/16 09:36 Asa - PO 81 mg DAILY HERBIE Administration Diphenhydramine HCl 50 mg 04/04/16 22:00 04/24/16 21:21 Benadryl - PO 50 mg HSMR1 PRN Administration INSOMNIA Eucalyptus/Menthol/Phenol/Sorbitol 1 each 04/04/16 18:34 Cepastat Lozenge - MM Q4H PRN SORE THROAT Glipizide 10 mg 04/05/16 07:00 04/25/16 07:22 Glucotrol - PO 10 mg BID@0700,1630 HERBIE Administration Guaifenesin 10 ml 04/04/16 18:34 Robitussin Dm - PO Q6H PRN COUGH Hydroxyzine Pamoate 50 mg 04/04/16 18:34 Vistaril - PO Q4H PRN AGITATION Insulin Aspart 1 vial 04/04/16 22:00 04/25/16 07:22 Novolog Vial Sliding Scale - SQ Not Given ACHS [facility] Protocol Insulin Detemir 10 units 04/04/16 22:00 04/24/16 21:23 Levemir Vial SQ 10 units HS HERBIE Administration Loperamide HCl 4 mg 04/04/16 18:34 Imodium - PO Q6H PRN DIARRHEA Magnesium Citrate 300 ml 04/04/16 18:34 04/12/16 21:17 Citroma - PO 300 ml Q48H PRN Administration CONSTIPATION Magnesium Hydroxide 30 ml 04/04/16 18:34 04/07/16 21:30 Milk Of Magnesia - PO 30 ml DAILY PRN Administration CONSTIPATION Methimazole 10 mg 04/04/16 22:00 04/25/16 06:24 Tapazole - PO 10 mg TID HERBIE Administration Naproxen 500 mg 04/10/16 22:00 04/25/16 09:36 Naprosyn - PO 500 mg BID HERBIE Administration Nicotine 21 mg 04/07/16 10:45 04/25/16 09:36 Nicoderm Patch - TD 21 mg DAILY HERBIE Administration Nifedipine 90 mg 04/05/16 10:00 04/25/16 09:36 Procardia Xl - PO 90 mg DAILY HERBIE Administration Multivit/Folic Acid/Iron 1 tab 04/05/16 10:00 04/25/16 09:36 Vitamins (Sjr) - PO 1 tab DAILY HERBIE Administration Pseudoephedrine/Triprolidine 1 combo 04/04/16 18:34 Actifed - PO TID PRN NASAL CONGESTION Thiamine HCl 100 mg 04/04/16 22:00 04/24/16 21:21 Vitamin B1 - PO 100 mg HS HERBIE Administration Medication(s) Change(s): Patient is not on psychotropic medications. Current Side Effect: No Lab tests ordered: No Lab tests reviewed: Yes Provider note:: Patient has completed her rehabilitation program on this date.She has addressed her issue of cannabis dependence and she will continue follow up at the [facility] drug program in [facility].Ms Gaffney responded favorably to treatment.She endorses euthymic mood,normal sleep and adequate energy level.She indicates that her stay at [address] was beneficial in terms of sharpening her awareness about the negative consequences of substance abuse versus the advantages of sobriety.Patient states that she will focus upon the recognition of behaviors that predispose to relapses and avoid triggers in order to maintain wellness.She verbalizes the resolution to adhere to the guidelines of [facility].No acute medical issues.Patient is at her baseline.Stable mental status (see full report).Uneventful hospital course.Ms Gaffney is stable for discharge. Total face to face time:: 35 Mental Status Exam - Mental Status Exam Alert and Oriented to: Time, Place, Person Cognitive Function: Good Patient Appearance: Well Groomed Mood: Hopeful, Euthymic Affect: Appropriate, Normal Range Patient Behavior: Appropriate, Cooperative Speech Pattern: Clear, Appropriate Voice Loudness: Normal Thought Process: Intact, Goal Oriented Thought Disorder: Not Present Hallucinations: Denies Suicidal Ideation: Denies Homicidal Ideation: Denies Insight/Judgement: Good Sleep: Well Appetite: Good Muscle strength/Tone: Normal Gait/Station: Hemiparetic (residual consequence of CVA suffered in october 2013) Psychiatric Treatment Plan - Problem List (1) Asthma Current Visit: Yes Qualifiers: Asthma severity: mild intermittent Asthma complication type: with status asthmaticus Qualified Code(s): J45.22 - Mild intermittent asthma with status asthmaticus (2) Cannabis dependence, uncomplicated Current Visit: Yes (3) HTN (hypertension) Current Visit: Yes Qualifiers: Hypertension type: essential hypertension Qualified Code(s): I10 - Essential (primary) hypertension (4) Hyperthyroidism Current Visit: Yes (5) Cerebrovascular accident Current Visit: Yes Comment: 2013 RIGHT SIDE WEAKNESS CANE
== END 2016-04-25 09:50 | disposition home or self-care (01) | DRG 772 ==
LOC: YASAS 09:46 → Y3W 17:35
PROVIDERS: ADMIT Psychiatry & Neurology Psychiatry; ATTEND Psychiatry & Neurology Psychiatry
PROC: HZ42ZZZ Group Counseling for Substance Abuse Treatment, Cognitive-Behavioral (ICD-10-PCS; principal; 2016-04-25)
DX: F12.20 Cannabis dependence, uncomplicated (principal); I10 Essential (primary) hypertension; J45.20 Mild intermittent asthma, uncomplicated; E05.90 Thyrotoxicosis, unspecified without thyrotoxic crisis or storm; I69.851 Hemiplegia and hemiparesis following other cerebrovascular disease affecting right dominant side
CPT/HCPCS: 36415; 80053; 81003; 81015; 84439; 84443; 84479; 85027; 86593; 87389; 93005; 93010

== ENCOUNTER 2018-03-19 18:35 | Emergency (ER) | payer OTHER ==
[2018-03-19 18:50] VITALS: BP 130/73; PULSE 88; TEMP 98.5; BMI 33.3
--- NOTE | 2018-03-19 18:50 | PDOC ---
Rapid Medical Evaluation Time Seen by Provider: 03/19/18 18:48 Medical Evaluation: Allergies Allergy/AdvReac Type Severity Reaction Status Date / Time hydromorphone HCl Allergy PALPITATION Verified 03/19/18 18:47 [From Dilaudid] 03/19/18 18:48 Pt presents for 5 days of diarrhea. Also admits to vomiting Exam: NAD, ambulatory Order: nothing Pt to proceed to ED for further evaluation Discharge Disposition - Diagnosis Diarrhea - Referrals Referrals: Hiwot Lopez MD [Primary Care Provider] - - Patient Instructions - Post Discharge Activity
--- NOTE | 2018-03-19 19:29 | PDOC ---
History of Present Illness - General Chief Complaint: Diarrhea Stated Complaint: ABD PAIN DIARRHEA Time Seen by Provider: 03/19/18 18:48 History Source: Patient, Family - History of Present Illness Initial Comments: 03/19/18 19:27 History person family here with complaints of worsening rash over the past 2 weeks. Is very pruritic, and noted discrete lesions between fingers, and tracking on arms. Is uncertain as to infestation at home, has never had scabies or other insect infestation. Is new apartment as of December. Also complaints of nausea and vomiting for the past few days. Has been ill with same and daughter was ill with same last week but improved Associated Symptoms: reports: loss of appetite, malaise, nausea/vomiting. denies: fever/chills Past History - Past Medical History Allergies/Adverse Reactions: Allergies Allergy/AdvReac Type Severity Reaction Status Date / Time hydromorphone HCl Allergy PALPITATION Verified 03/19/18 18:47 [From Dilaudid] Home Medications: Ambulatory Orders Glipizide [Glucotrol -] 10 mg PO TID 04/04/16 Albuterol Sulfate Inhaler - [Ventolin HFA Inhaler -] 2 inh PO Q4H #1 inh Aspirin [ASA -] 81 mg PO DAILY #30 tab.chew 04/19/16 Glipizide [Glucotrol -] 10 mg PO BID@0700,1630 #60 tablet 04/19/16 Insulin Glargine,Hum.rec.anlog [Lantus (10mL VIAL) -] 10 units SQ HS #1 vial Methimazole [Tapazole -] 10 mg PO Q12H #60 tablet 04/19/16 Nifedipine [Procardia Xl] 90 mg PO DAILY #30 tab.er.24 04/19/16 Permethrin [Nix Complete] 324.86 ml MC ONCE #2 combo..pkg 03/19/18 Anemia: No Asthma: Yes Cancer: No Cardiac Disorders: No CVA: Yes (10/2013) COPD: No CHF: No Dementia: No Diabetes: Yes GI Disorders: No Disorders: Yes ( KIDNEY STONES 2012) HTN: Yes Hypercholesterolemia: No Kidney Stones: Yes Liver Disease: No Seizures: No Thyroid Disease: Yes (Graves disease, hyperthyroidism) - Surgical History Abdominal Surgery: Yes (HERNIA) Appendectomy: No Cardiac Surgery: No Cholecystectomy: No Lung Surgery: No Neurologic Surgery: No Orthopedic Surgery: No - Reproductive History PID: No - Immunization History Immunization Up to Date: Yes - Suicide/Smoking/Psychosocial Hx Smoking Status: Yes Smoking History: Current every day smoker Have you smoked in the past 12 months: No Number of Cigarettes Smoked Daily: 5 If you are a former smoker, when did you quit?: 02/07 Cigars Per Day: 0 Information on smoking cessation initiated: No 'Breaking Loose' booklet given: 04/04/16 Hx Alcohol Use: Yes Drug/Substance Use Hx: No Substance Use Type: Marijuana (Started smoking marijuana at age 12, consumes 3 joints 3-6 times weekly. Last smoked on 03/30/16) Hx Substance Use Treatment: Yes (She has been attending [facility] since Sep 2015 ) *Physical Exam - Vital Signs Last Vital Signs Temp Pulse Resp BP Pulse Ox 98.5 F 88 18 130/73 100 03/19/18 18:47 03/19/18 18:47 03/19/18 18:47 03/19/18 18:47 03/19/18 18:47 - Physical Exam General Appearance: Yes: Nourished, Appropriately Dressed, Apparent Distress HEENT: positive: JASON, Normal ENT Inspection, Normal Voice, TMs Normal, Pharynx Normal Neck: positive: Supple. negative: Lymphadenopathy (R), Lymphadenopathy (L) Respiratory/Chest: positive: Lungs Clear Gastrointestinal/Abdominal: positive: Normal Bowel Sounds, Tender, Soft. negative: Distended, Guarding, Rebound, Tenderness Extremity: positive: Normal Capillary Refill, Normal Inspection Integumentary: positive: Rash (multiple discrete lesions scattered on arms including interdigital folds of fingers consistent with appearance of scabies, other family members with same), Other Neurologic: positive: shredder tender peat II-XII NML intact, Fully Oriented, Alert, Normal Mood/ Affect, Normal Response Moderate Sedation - Procedure Monitoring Vital Signs: Procedure Monitoring Vital Signs Temperature 98.5 F 03/19/18 18:47 Pulse Rate 88 03/19/18 18:47 Respiratory Rate 18 03/19/18 18:47 Blood Pressure 130/73 03/19/18 18:47 O2 Sat by Pulse Oximetry (%) 100 03/19/18 18:47 - Post Procedure Assessment Tolerated procedure well: No Was a reversal agent used?: No *DC/Admit/Observation/Transfer Diagnosis at time of Disposition: Scabies, Gastroenteritis - Discharge Dispostion Disposition: HOME Condition at time of disposition: Stable Decision to Admit order: No - Prescriptions Prescriptions: Permethrin [Nix Complete] 324.86 ml MC ONCE #2 combo..pkg - Referrals Referrals: Hiwot Lopez MD [Primary Care Provider] - - Patient Instructions Printed Discharge Instructions: DI for Scabies Additional Instructions: Rest, keep cool and dry- avoid strenuous activity or hot /humid environments Less hot showers, no abrasive soaps May use ice packs, cool cloth on itching lesions you will need to strip beds, and clean clothes in hot water as possible and dry them thoroughly as heat will kill the infestation May use heavy creams like Eucerin or Cetaphil to keep skin moist May apply Aveeno, calamine lotion, [id number] hydrocortisone creams as needed for symptoms May use Benadryl at night for antihistamine, Zyrtec/ Brenda or Claritin for daytime antihistamine use to help with itching A use aloe vera gel to help assist with itching and inflammatory response May use ffrt-[id number] hydrocortisone cream on all areas except face Try to identify cause for rash and avoid exposures Use Elimite as directed and repeat in one week Be sure to use insect sprays/repellent, ones with DEET are the most effective when outdoors Followup with PMD in one week if no resolution Make appointment with wireless retail manager for evaluation when possible Return to emergency department for worsening swelling, pus or purulent drainage from areas or any changes with swelling to lips, tongue, face or breathing problems from ALLERGIC reaction. Rest, drink lots of fluids: Teas, water, soups Chloé delvis, carbonated beverages for the bubbles May try peppermint teas Avoid heavy , spicy or fatty foods until symptoms have resolved Avoid contact with others until fevers and symptoms resolved Lots of handwashing and good hygiene Continue [id number] medications for symptomatic relief Tylenol or Motrin for fever and pain Followup with private physician in one to 2 days as needed Return to emergency department for worsened symptoms, fevers, dehydration - Post Discharge Activity Forms/Work/School Notes: Back to Work
== END 2018-03-19 19:50 | disposition home or self-care (01) ==
LOC: JERFT 18:35
DX: K52.9 Noninfective gastroenteritis and colitis, unspecified (principal); B86 Scabies; I10 Essential (primary) hypertension; E11.9 Type 2 diabetes mellitus without complications; Z79.4 Long term (current) use of insulin; E05.90 Thyrotoxicosis, unspecified without thyrotoxic crisis or storm; Z86.73 Personal history of transient ischemic attack (TIA), and cerebral infarction without residual deficits; Z87.09 Personal history of other diseases of the respiratory system; Z87.442 Personal history of urinary calculi
CPT/HCPCS: 99281-25

== ENCOUNTER 2018-05-06 14:54 | Emergency (ER) | payer OTHER ==
[2018-05-06 15:00] VITALS: BP 161/91; PULSE 103; TEMP 98.8; BMI 34.1
--- NOTE | 2018-05-06 15:35 | PDOC ---
History of Present Illness - General Chief Complaint: Sore Throat Stated Complaint: STREP THROAT Time Seen by Provider: 05/06/18 15:15 History Source: Patient Exam Limitations: Clinical Condition - History of Present Illness Initial Comments: 05/06/18 15:32 Patient with no significant past medical history present with complaint of 2 day history of sore throat, fever and body aches. Patient reported child and just recovered from strep infection. Denies nausea, vomiting or diarrhea. Denies cough, shortness of breath, chest pain or dizziness. Denies any other symptoms Timing/Duration: other (2 days) Past History - Past Medical History Allergies/Adverse Reactions: Allergies Allergy/AdvReac Type Severity Reaction Status Date / Time hydromorphone HCl Allergy PALPITATION Verified 05/06/18 14:59 [From Dilaudid] Home Medications: Ambulatory Orders Glipizide [Glucotrol -] 10 mg PO TID 04/04/16 Albuterol Sulfate Inhaler - [Ventolin HFA Inhaler -] 2 inh PO Q4H #1 inh Aspirin [ASA -] 81 mg PO DAILY #30 tab.chew 04/19/16 Glipizide [Glucotrol -] 10 mg PO BID@0700,1630 #60 tablet 04/19/16 Insulin Glargine,Hum.rec.anlog [Lantus (10mL VIAL) -] 10 units SQ HS #1 vial Methimazole [Tapazole -] 10 mg PO Q12H #60 tablet 04/19/16 Nifedipine [Procardia Xl] 90 mg PO DAILY #30 tab.er.24 04/19/16 Permethrin [Nix Complete] 324.86 ml MC ONCE #2 combo..pkg 03/19/18 Amox-Tr/K Cl [Augmentin - 875Mg Tablet] 1 tab PO BID #14 tablet 05/06/18 Anemia: No Asthma: Yes Cancer: No Cardiac Disorders: No CVA: Yes (10/2013) COPD: No CHF: No Dementia: No Diabetes: Yes GI Disorders: No Disorders: Yes ( KIDNEY STONES 2012) HTN: Yes Hypercholesterolemia: No Kidney Stones: Yes Liver Disease: No Seizures: No Thyroid Disease: Yes (Graves disease, hyperthyroidism) - Surgical History Abdominal Surgery: Yes (HERNIA) Appendectomy: No Cardiac Surgery: No Cholecystectomy: No Lung Surgery: No Neurologic Surgery: No Orthopedic Surgery: No - Reproductive History PID: No - Immunization History Immunization Up to Date: Yes - Suicide/Smoking/Psychosocial Hx Smoking Status: Yes Smoking History: Never smoked Have you smoked in the past 12 months: No Number of Cigarettes Smoked Daily: 5 If you are a former smoker, when did you quit?: 02/07 Cigars Per Day: 0 'Breaking Loose' booklet given: 04/04/16 Hx Alcohol Use: Yes Drug/Substance Use Hx: No Substance Use Type: Marijuana (Started smoking marijuana at age 12, consumes 3 joints 3-6 times weekly. Last smoked on 03/30/16) Hx Substance Use Treatment: Yes (She has been attending [facility] since Sep 2015 ) Review of Systems - Review of Systems Able to Perform ROS?: Yes Is the patient limited Nigerien proficient: No Constitutional: Yes: Chills, Fever, Malaise. No: Weakness HEENTM: Yes: Symptoms Reported, See HPI, Nose Congestion, Throat Pain. No: Eye Pain, Blurred Vision, Tearing, Recent change in vision, Double Vision, Cataracts , Ear Pain, Ocular Prothesis, Ear Discharge, Nose Pain, Tinnitus, Nose Bleeding , Hearing Loss, Throat Swelling, Mouth Pain, Dental Problems, Difficulty Swallowing, Mouth Swelling, Other Respiratory: No: Symptoms reported, See HPI, Cough, Orthopnea, Shortness of Breath, SOB with Exertion, SOB at Rest, Stridor, Wheezing, Productive cough, Hemoptysis, Other Cardiac (ROS): No: Symptoms Reported, See HPI, Chest Pain, Edema, Irregular Heart Rate, Lightheadedness, Palpitations, Syncope, Chest Tightness, Other ABD/GI: No: Constipated, Diarrhea, Nausea, Vomiting, Abdominal cramping All Other Systems: Reviewed and Negative *Physical Exam - Vital Signs Last Vital Signs Temp Pulse Resp BP Pulse Ox 98.8 F 103 H 20 161/91 99 05/06/18 14:55 05/06/18 14:55 05/06/18 14:55 05/06/18 14:55 05/06/18 14:55 - Physical Exam Comments: 05/06/18 15:33 GENERAL: Well developed, well nourished. Awake and alert. No acute distress. HEENT: Normocephalic, atraumatic. PERRLA, EOMI. No conjunctival pallor. Sclera are non-icteric. Moist mucous membranes. Oropharynx is clear. NECK: Supple. Full ROM. CARDIOVASCULAR: Regular rate and rhythm. No murmurs, rubs, or gallops. Distal pulses are 2+ and symmetric. PULMONARY: No evidence of respiratory distress. Lungs clear to auscultation bilaterally. No wheezing, rales or rhonchi. ABDOMINAL: Soft. Non-tender. Non-distended. No rebound or guarding. No organomegaly. Normoactive bowel sounds. MUSCULOSKELETAL Normal range of motion at all joints. SKIN: Warm and dry. Normal capillary refill. No rashes. No jaundice. NEUROLOGICAL: Alert, awake, appropriate. Gait is normal without ataxia. PSYCHIATRIC: Cooperative. Good eye contact. Appropriate mood General Appearance: Yes: Nourished, Appropriately Dressed. No: Apparent Distress Moderate Sedation - Procedure Monitoring Vital Signs: Procedure Monitoring Vital Signs Temperature 98.8 F 05/06/18 14:55 Pulse Rate 103 H 05/06/18 14:55 Respiratory Rate 20 05/06/18 14:55 Blood Pressure 161/91 05/06/18 14:55 O2 Sat by Pulse Oximetry (%) 99 05/06/18 14:55 Medical Decision Making - Medical Decision Making 05/06/18 16:13 Patient with no past medical history present with complaint of three-day history of sore throat, fever and body aches. Patient report exposure to family with positive strep. Clinical exam unremarkable with patient being afebrile however patient reported taking Tylenol prior to ED visit. Rapid strep positive. Rapid flu negative. Patient stable for outpatient management of strep pharyngitis with Augmentin and PCP follow-up. *DC/Admit/Observation/Transfer Diagnosis at time of Disposition: Acute pharyngitis Qualifiers: Pharyngitis/tonsillitis etiology: unspecified etiology Qualified Code(s): J02.9 - Acute pharyngitis, unspecified - Discharge Dispostion Disposition: HOME Condition at time of disposition: Stable Decision to Admit order: No - Prescriptions Prescriptions: Amox-Tr/K Cl [Augmentin - 875Mg Tablet] 1 tab PO BID #14 tablet - Referrals - Patient Instructions Printed Discharge Instructions: DI for Pharyngitis/Tonsillopharyngitis -- Adult Additional Instructions: The strep test was positive. Take prescribed antibiotics and finish it. Continue with Tylenol as needed for fever. Increase fluid intake. Follow-up with primary care as needed. - Post Discharge Activity
== END 2018-05-06 16:18 | disposition home or self-care (01) ==
LOC: JERFT 14:54
DX: J02.0 Streptococcal pharyngitis (principal); B95.0 Streptococcus, group A, as the cause of diseases classified elsewhere; I10 Essential (primary) hypertension; E05.90 Thyrotoxicosis, unspecified without thyrotoxic crisis or storm; E11.9 Type 2 diabetes mellitus without complications; Z79.4 Long term (current) use of insulin; Z87.09 Personal history of other diseases of the respiratory system; Z86.2 Personal history of diseases of the blood and blood-forming organs and certain disorders involving the immune mechanism
CPT/HCPCS: 87804; 87880; 99281-25

== ENCOUNTER 2018-05-30 17:34 | Emergency (ER) | payer OTHER ==
[2018-05-30 18:00] VITALS: BP 141/81; PULSE 82; TEMP 99.8; BMI 32.3
--- NOTE | 2018-05-30 18:00 | PDOC ---
Rapid Medical Evaluation Time Seen by Provider: 05/30/18 17:57 Medical Evaluation: Allergies Allergy/AdvReac Type Severity Reaction Status Date / Time hydromorphone HCl Allergy PALPITATION Verified 05/06/18 14:59 [From Dilaudid] 05/30/18 17:57 I have performed a brief in-person evaluation of this patient. The patient presents with a chief complaint of: Back pain after a fall yesterday Pertinent physical exam findings: No gross deficits I have ordered the following: x-ray The patient will proceed to the ED for further evaluation. Discharge Disposition - Diagnosis Back pain - Referrals - Patient Instructions - Post Discharge Activity
[2018-05-30] MEDS ORDERED: IBUPROFEN 600 MG TABLET (FP) PO ONE ×2 (18:32→18:58)
--- NOTE | 2018-05-30 18:32 | PDOC ---
History of Present Illness - General Chief Complaint: Injury Stated Complaint: FALL Time Seen by Provider: 05/30/18 17:57 History Source: Patient Exam Limitations: No Limitations - History of Present Illness Initial Comments: 05/30/18 18:23 States fell down approximately 20 stairs on bottom 2 nights ago and has complaints of tailbone pain and lower back pain. States has multiple bruises but is concerned primarily upper back. Denies head injury, no neck pain, states has some discolored/dark urine but denies any bleeding noted. Occurred: reports: yesterday Severity: reports: moderate Pain Location: reports: back, pelvis Method of Injury: Yes: direct blow, fall Loss of Consciousness: no loss of consciousness Associated Symptoms (Fall): denies symptoms Past History - Travel Traveled outside of the country in the last 30 days: No Close contact w/someone who was outside of country & ill: No - Past Medical History Allergies/Adverse Reactions: Allergies Allergy/AdvReac Type Severity Reaction Status Date / Time hydromorphone HCl Allergy PALPITATION Verified 05/30/18 17:57 [From Dilaudid] Home Medications: Ambulatory Orders Glipizide [Glucotrol -] 10 mg PO TID 04/04/16 Albuterol Sulfate Inhaler - [Ventolin HFA Inhaler -] 2 inh PO Q4H #1 inh Aspirin [ASA -] 81 mg PO DAILY #30 tab.chew 04/19/16 Glipizide [Glucotrol -] 10 mg PO BID@0700,1630 #60 tablet 04/19/16 Insulin Glargine,Hum.rec.anlog [Lantus (10mL VIAL) -] 10 units SQ HS #1 vial Methimazole [Tapazole -] 10 mg PO Q12H #60 tablet 04/19/16 Nifedipine [Procardia Xl] 90 mg PO DAILY #30 tab.er.24 04/19/16 Permethrin [Nix Complete] 324.86 ml MC ONCE #2 combo..pkg 03/19/18 Amox-Tr/K Cl [Augmentin - 875Mg Tablet] 1 tab PO BID #14 tablet 05/06/18 Ibuprofen 400 mg PO Q6H #30 tablet 05/30/18 Nitrofurantoin Macrocrystal [Macrodantin -] 100 mg PO BID #14 capsule 05/30/18 Nitrofurantoin Macrocrystal [Macrodantin -] 100 mg PO BID #14 capsule 05/30/18 Anemia: No Asthma: Yes Cancer: No Cardiac Disorders: No CVA: Yes (10/2013) COPD: No CHF: No Dementia: No Diabetes: Yes GI Disorders: No Disorders: Yes ( KIDNEY STONES 2012) HTN: Yes Hypercholesterolemia: No Kidney Stones: Yes Liver Disease: No Seizures: No Thyroid Disease: Yes (Graves disease, hyperthyroidism) - Surgical History Abdominal Surgery: Yes (HERNIA) Appendectomy: No Cardiac Surgery: No Cholecystectomy: No Lung Surgery: No Neurologic Surgery: No Orthopedic Surgery: No - Reproductive History PID: No - Immunization History Immunization Up to Date: Yes - Suicide/Smoking/Psychosocial Hx Smoking Status: Yes Smoking History: Current every day smoker Have you smoked in the past 12 months: No Number of Cigarettes Smoked Daily: 10 If you are a former smoker, when did you quit?: 02/07 Cigars Per Day: 0 Information on smoking cessation initiated: No 'Breaking Loose' booklet given: 04/04/16 Hx Alcohol Use: No Drug/Substance Use Hx: No Substance Use Type: Marijuana (Started smoking marijuana at age 12, consumes 3 joints 3-6 times weekly. Last smoked on 03/30/16) Hx Substance Use Treatment: Yes (She has been attending [facility] since Sep 2015 ) Trauma Specific PMHX - Complaint Specific PMHX Arthritis: Yes (right knee/hip) Review of Systems - Review of Systems Able to Perform ROS?: Yes Is the patient limited Venezuelan proficient: Yes Constitutional: Yes: Symptoms Reported, See HPI HEENTM: Yes: See HPI. No: Symptoms Reported Respiratory: Yes: See HPI. No: Symptoms reported, Cough, Shortness of Breath ABD/GI: Yes: See HPI. No: Symptoms Reported, Nausea : Yes: See HPI, Other (discoloration/ dark- no blood noted ) Musculoskeletal: Yes: Symptoms Reported, See HPI, Back Pain, Muscle Pain Neurological: Yes: See HPI. No: Symptoms reported, Numbness, Tingling All Other Systems: Reviewed and Negative *Physical Exam - Vital Signs Last Vital Signs Temp Pulse Resp BP Pulse Ox 99.8 F H 82 16 141/81 100 05/30/18 17:57 05/30/18 17:57 05/30/18 17:57 05/30/18 17:57 05/30/18 17:57 - Physical Exam General Appearance: Yes: Nourished, Appropriately Dressed, Apparent Distress, Moderate Distress HEENT: positive: JASON, Normal ENT Inspection, TMs Normal, Pharynx Normal Neck: positive: Supple. negative: Tender Respiratory/Chest: positive: Lungs Clear, Normal Breath Sounds Cardiovascular: positive: Regular Rhythm Musculoskeletal: positive: Decreased Range of Motion, Vertebral Tenderness (to coccyx ). negative: CVA Tenderness, Muscle Spasm Extremity: positive: Normal Capillary Refill. negative: Normal Range of Motion (limited ) Integumentary: positive: Normal Color, Swelling (mild swelling but no abrasion or brusiing noted to low back buttocks ). 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 We'll start on Macrobid and treat with ibuprofen. *DC/Admit/Observation/Transfer Diagnosis at time of Disposition: UTI (lower urinary tract infection) Back pain Qualifiers: Back pain location: low back pain Chronicity: acute Back pain laterality: midline Sciatica presence: with sciatica - Discharge Dispostion Disposition: HOME Condition at time of disposition: Stable Decision to Admit order: No - Prescriptions Prescriptions: Nitrofurantoin Macrocrystal [Macrodantin -] 100 mg PO BID #14 capsule - Referrals Referrals: Elizabeth Saeed BRANCH CUSTOMER SERVICE REPRESENTATIVE [Primary Care Provider] - - Patient Instructions Printed Discharge Instructions: DI for Low Back Pain Additional Instructions: Rest, no heavy lifting or exercise until pain is resolved Hot soaks to neck and low back as often as possible/hot showers or Jacuzzis No massage or therapy until spasm is gone Continue Naprosyn 500 mg tablet, 1 tablet every 8 hours for the next 3 days then as needed for pain and swelling Cyclobenzaprine 1-10mg every 8 hours as needed for spasm If not significant improvement within 24 hours with medication and rest regime, followup with private physician for change in medications and /or therapy. Rest, drink lots of fluids: Teas, water, soups Avoid contact with others until fevers and symptoms resolved Lots of handwashing and good hygiene Continue [id number] medications for symptomatic relief Tylenol or Motrin for fever and pain Continue all of antibiotics until completed Followup with private physician in one week for repeat urinalysis/reevaluation Return to emergency department for worsened symptoms, fevers, dehydration - Post Discharge Activity
[2018-05-30 19:42] LABS: HCG,QUALITATIVE URINE Negative; URINE APPEARANCE TURBID; URINE COLOR YELLOW; URINE GLUCOSE (UA) 2+ (NEGATIVE)
[2018-05-30 19:43] LABS: URINE BILIRUBIN NEGATIVE (NEGATIVE); URINE KETONE TRACE (NEGATIVE); URINE LEUK ESTERASE 3+ (NEGATIVE); URINE NITRITE POSITIVE (NEGATIVE); URINE PROTEIN 3+ (NEGATIVE)
[2018-05-30 19:44] LABS: URINE BACTERIA 2905.8 /hpf (NEGATIVE); URINE CASTS 5.66 /hpf (0-8); URINE RBC 244.5 /hpf (0-4); URINE WBC 2670.6 /hpf (0-5)
[2018-05-30] MEDS ORDERED: NITROFURANTOIN MACROCRYSTAL 50 MG CAPSULE (FP) PO SCH (19:45)
[2018-05-30] MEDS ORDERED: NITROFURANTOIN MACROCRYSTAL 50 MG CAPSULE (FP) ONE (19:47)
== END 2018-05-30 20:05 | disposition home or self-care (01) ==
LOC: JERFT 17:34
DX: N39.0 Urinary tract infection, site not specified (principal); M54.5 Low back pain
CPT/HCPCS: 72100-TC-FY; 72220-TC-FY; 81003; 84703; 87086; 87186; 99281-25

== ENCOUNTER 2018-06-02 07:20 | Inpatient (IN) | payer OTHER ==
[2018-06-02] MEDS ORDERED: morphine CARPU-JECT 4 MG/1 ML DISP.SYRIN IVPUSH ONE ×2 (07:47→10:41)
[2018-06-02] MEDS ORDERED: ONDANSETRON 4 MG/2 ML VIAL IVPUSH ONE (07:47)
[2018-06-02] MEDS ORDERED: SODIUM CHLORIDE 1,000 ML IV STA (07:47)
[2018-06-02] MEDS ORDERED: morphine SULFATE 4 MG/ML VIAL ONE ×3 (07:56→14:53)
[2018-06-02] MEDS ORDERED: ONDANSETRON 4 MG/2 ML VIAL ONE (07:56)
--- NOTE | 2018-06-02 08:13 | PDOC ---
History of Present Illness - General Chief Complaint: Back Pain Stated Complaint: KIDNEY PAIN Time Seen by Provider: 06/02/18 07:39 History Source: Patient, Family Exam Limitations: No Limitations - History of Present Illness Initial Comments: 06/02/18 08:45 HPI 43 YOF with h/o of substance abuse (marijuana and nicotine), asthma, HTN, hyperthyroidism/thyroid ca, insulin dependent diabetes mellitus with humalog and metformin, CVA in presenting with acute onset of worsening left sided flank pain x 3 days, a/w fever (Tmax 101), night sweats and chills, n/v, urinary urgency and dysuria. She was dxd with UTI on macrobid now from her last ED visit on 05/30/18. She was eval here on 05/30/2018 after fall, with negative lumbar and coccyx xrays for acute fx. No further trauma or falls. Has been taking nsaids without relief. No sick contacts or travel. No new changes in medications. No suspicious food intake Allergies: NKA Past Medical History: substance abuse (marijuana and nicotine), asthma, HTN, hyperthyroidism/thyroid ca, insulin dependent diabetes mellitus with humalog and metformin, CVA in Social history: Lives with family. +smoking. No alcohol. No illicit drugs. Surgical history: C section, ventral and umbilical hernia. Review of systems Constitutional: +fevers or chills. +sweats. HEENT: no headache or dizziness. No congestion. No visual/hearing disturbances. CVS: no cp or syncope. +palpitations Resp: no sob. No cough. Gastrointestinal: +abdominal pain, flank pain, nausea and vomiting. No diarrhea or constipation Genitourinary: no hematuria. +urinary urgency and dysuria. MUSCULOSKELETAL: No joint pain and swelling. No neck pain. +back pain. SKIN: no redness or skin changes, no discharge, no rash. No wounds. Hematologic: no easy bruising/bleeding. NEUROLOGIC: No headache, dizziness, LOC or altered mental status. No weakness, numbness or tingling. Allergic/Immunologic: no allergies All other systems reviewed and negative, or as documented in HPI. Physical exam: General: colicky, moderate distress 2/2 pain HEENT: NCAT, PERRL, EOMI, clear conjunctiva, anicteric, moist mucus membranes, clear oropharynx, no oral lesions.. Neck: neck supple, FROM Resp: CTAB, normal and even respirations, no respiratory distress CVS: RRR, no murmurs, 2+ peripheral pulses throughout, no peripheral edema Abdomen: soft, diffuse abdominal tenderness, midline surgical scar. +left flank TTP, +CVAT. Back: normal inspection and ROM, +left CVAT. MSK: no edema, GARVEY x4, ROM intact. No clubbing or cyanosis. normal bulk and tone. Neuro: alert, no focal neuro deficits. Skin: warm and well perfused, cap refill <2 sec, normal color Past History - Past Medical History Allergies/Adverse Reactions: Allergies Allergy/AdvReac Type Severity Reaction Status Date / Time hydromorphone HCl Allergy PALPITATION Verified 06/02/18 07:47 [From Dilaudid] Home Medications: Ambulatory Orders Glipizide [Glucotrol -] 10 mg PO TID 04/04/16 Albuterol Sulfate Inhaler - [Ventolin HFA Inhaler -] 2 inh PO Q4H #1 inh Aspirin [ASA -] 81 mg PO DAILY #30 tab.chew 04/19/16 Glipizide [Glucotrol -] 10 mg PO BID@0700,1630 #60 tablet 04/19/16 Insulin Glargine,Hum.rec.anlog [Lantus (10mL VIAL) -] 10 units SQ HS #1 vial Methimazole [Tapazole -] 10 mg PO Q12H #60 tablet 04/19/16 Nifedipine [Procardia Xl] 90 mg PO DAILY #30 tab.er.24 04/19/16 Permethrin [Nix Complete] 324.86 ml MC ONCE #2 combo..pkg 03/19/18 Amox-Tr/K Cl [Augmentin - 875Mg Tablet] 1 tab PO BID #14 tablet 05/06/18 Ibuprofen 400 mg PO Q6H #30 tablet 05/30/18 Nitrofurantoin Macrocrystal [Macrodantin -] 100 mg PO BID #14 capsule 05/30/18 Nitrofurantoin Macrocrystal [Macrodantin -] 100 mg PO BID #14 capsule 05/30/18 Anemia: No Asthma: Yes Cancer: No Cardiac Disorders: No CVA: Yes (10/2013) COPD: No CHF: No Dementia: No Diabetes: Yes GI Disorders: No Disorders: Yes ( KIDNEY STONES 2012) HTN: Yes Hypercholesterolemia: No Kidney Stones: Yes Liver Disease: No Seizures: No Thyroid Disease: Yes (Graves disease, hyperthyroidism) - Surgical History Abdominal Surgery: Yes (HERNIA) Appendectomy: No Cardiac Surgery: No Cholecystectomy: No Lung Surgery: No Neurologic Surgery: No Orthopedic Surgery: No - Reproductive History PID: No - Immunization History Immunization Up to Date: Yes - Suicide/Smoking/Psychosocial Hx Smoking Status: Yes Smoking History: Never smoked Have you smoked in the past 12 months: No Number of Cigarettes Smoked Daily: 10 If you are a former smoker, when did you quit?: 02/07 Cigars Per Day: 0 Information on smoking cessation initiated: No 'Breaking Loose' booklet given: 04/04/16 Hx Alcohol Use: No Drug/Substance Use Hx: No Substance Use Type: Marijuana (Started smoking marijuana at age 12, consumes 3 joints 3-6 times weekly. Last smoked on 03/30/16) Hx Substance Use Treatment: Yes (She has been attending [facility] since Sep 2015 ) *Physical Exam - Vital Signs Last Vital Signs Temp Pulse Resp BP Pulse Ox 98.5 F 93 H 24 H 152/91 100 06/02/18 07:46 06/02/18 07:46 06/02/18 07:46 06/02/18 07:46 06/02/18 07:46 Heart Score/ECG Review #1 ECG reviewed & interpreted by me at: 08:30 General ECG Interpretation: Sinus Rhythm, Normal Rate, Normal Intervals 06/02/18 08:46 EKG normal sinus rhythmat 91 bpm, no interval abnormalities, narrow QRS, ST and T wave segments and morphology normal. Nonspecific T wave abnormalities ED Treatment Course - LABORATORY CBC & Chemistry Diagram: 06/02/18 08:08 06/02/18 08:08 Medical Decision Making - Medical Decision Making 06/02/18 08:45 hpi as documented, VS no fever, mod distress 2/2 pain. DDx abdominal pain: Renal colic, ureteral stone, biliary colic, metabolic/ electrolyte derangements. GERD, PUD, esophageal spasm, pancreatitis, hepatitis, colitis, gastroenteritis, cholecystitis, UTI, pyelonephritis, medication side effect, hernia, appendicitis, diverticulitis, Prior notes reviewed, including admissions, discharges and consultations. laboratory results and imaging reviewed, basic labs and lytes wnl, notable for + leukocytosis of 13K, low Na 131 likely poor hydration and low potassium, poor PO intake and n/v. UA_prelim neg, but is on abx so could produce false neg. prior urine culture from 05/30/18 with +Ecoli, failing op abx, treat as acute pyelonephritis now EKG normal sinus rhythmat 91 bpm, no interval abnormalities, narrow QRS, ST and T wave segments and morphology normal. Nonspecific T wave abnormalities ED course - potassium repleted - IV ceftriaxone, IVF hydration, morphine for analgesia - CT a.p to eval for acute intra abdominal pathology, as diffusely tender, alternative diagnosis to be evaluated for, but mostly suspecting acute pyelo with clinical presentation and physical exam. +pyelonephritis and perinephric fluid/hypodensities and stranding noted. rt simple ovarian cyst noted, but not symptomatic there. admit for acute pyelo admit to hospitalist service. Dr Kwon. 06/02/18 10:55 06/02/18 12:33 06/02/18 12:33 06/02/18 12:34 *DC/Admit/Observation/Transfer Diagnosis at time of Disposition: Pyelonephritis - Discharge Dispostion Condition at time of disposition: Guarded Decision to Admit order: Yes Decision to Admit order Date/Time: 06/02/18 10:54 Decision to Admit Order Category Date Time Status Decision to Admit to Hospital Routine Admission 06/02/18 10:40 Ordered - Referrals - Patient Instructions - Post Discharge Activity
[2018-06-02 08:24] LABS: BASO % 0.4 % (0-2.0); EOS % 0.1 % (0-4.5); HEMATOCRIT 40.1 % (32.4-45.2); HEMOGLOBIN 12.9 GM/dL (10.7-15.3); LYMPH % 8.9 % (8-40); MCH 25.5 pg (25.7-33.7); MCHC 32.2 g/dl (32.0-36.0); MEAN CELL VOLUME 79.1 fl (80-96); MEAN PLT VOLUME 8.1 fl (7.5-11.1); MONO % 12.9 % (3.8-10.2); NEUT % 77.7 % (42.8-82.8); PLATELET COUNT 231 K/MM3 (134-434); RBC 5.07 M/mm3 (3.60-5.2); RDW 13.8 % (11.6-15.6); WHITE BLOOD COUNT 13.8 K/mm3 (4.0-10.0)
[2018-06-02 08:46] LABS: ALBUMIN 3.2 g/dl (3.4-5.0); ALK PHOS 113 U/L (45-117); ANION GAP 16 MMOL/L (8-16); BLOOD UREA NITROGEN 8 mg/dL (7-18); CALCIUM 8.9 mg/dL (8.5-10.1); CHLORIDE 94 mmol/L (98-107); CO2 21 mmol/L (21-32); CREATININE 0.9 mg/dL (0.55-1.3); GLUCOSE,RANDOM 274 mg/dL (74-106); LIPASE 100 U/L (73-393); POTASSIUM 3.2 mmol/L (3.5-5.1); SGOT/AST 25 U/L (15-37); SGPT/ALT 28 U/L (13-61); SODIUM 131 mmol/L (136-145); TOT PROT 8.2 g/dl (6.4-8.2)
[2018-06-02] MEDS ORDERED: POTASSIUM CHLORIDE TABS 20 MEQ TABLET.ER (FP) PO ONE ×2 (09:28→09:42)
[2018-06-02] MEDS ORDERED: CEFTRIAXONE 1,000 MG in DEXTROSE 5%-WATER - 50 ML IVPB ONE (09:29)
[2018-06-02 09:35] LABS: URINE APPEARANCE CLEAR; URINE BILIRUBIN NEGATIVE (NEGATIVE); URINE COLOR YELLOW; URINE GLUCOSE (UA) 3+ (NEGATIVE); URINE KETONE 3+ (NEGATIVE); URINE LEUK ESTERASE NEGATIVE (NEGATIVE); URINE NITRITE NEGATIVE (NEGATIVE); URINE PROTEIN NEGATIVE (NEGATIVE)
[2018-06-02] MEDS ORDERED: SODIUM CHLORIDE 0.9% 500 ML INFUS.BAG IV ONE (09:36)
[2018-06-02] MEDS ORDERED: CEFTRIAXONE 1 GM/50 ML BAG ONE (09:42)
[2018-06-02] MEDS ORDERED: SODIUM CHLORIDE 1,000 ML IV SCH (11:15)
--- NOTE | 2018-06-02 11:20 | HP ---
CHIEF COMPLAINT: abdominal pain HISTORY OF PRESENT ILLNESS: Patient is a 43 yo F with a PMHx of IDDM, HTN, CVA x 2, thyroid cancer, HLD, presented to the ED because of abdominal pain, fevers of 101, nausea, vomiting, and L flank pain. Patient says the pain started off as lower abdominal pain and later localized more towards the L flank. She says she has vomited (NBNB) many times since yesterday. She was recently discharged from the ER (05/30) on antibiotics because of a positive u/a and E. coli culture positive. Patient says she has a history of multiple UTI's last one being 5 months ago. She also said she had pyelonephritis years ago. Patient also complains of urinary symptoms. She says she has increased urgency, frequency, and dysuria that started after she was discharged from the ER 3 days ago. She denies sob, dizziness, sick contacts, headaches, chest pain, diarrhea, cough, bloody stools, blood in urine. ER course was notable for: (1) IV abx: Ceftriaxone (2) 2L IV Fluids NS Recent Travel: none PAST MEDICAL HISTORY: IDDM, HTN, CVA x 2, thyroid cancer, HLD, hx of UTIs, hx of pyelo PAST SURGICAL HISTORY: c section, umbilical hernia repair Social History: Smokin/ ppd for 11 years Alcohol: denies Drugs: marijuana use (last on monday) Family History: Allergies hydromorphone HCl [From Dilaudid] Allergy (Verified 06/02/18 07:47) PALPITATION HOME MEDICATIONS: Home Medications Medication Instructions Recorded Glipizide [Glucotrol -] 10 mg PO TID 04/04/16 Albuterol Sulfate Inhaler - 2 inh PO Q4H #1 inh 04/19/16 [Ventolin HFA Inhaler -] Aspirin [ASA -] 81 mg PO DAILY #30 tab.chew 04/19/16 Glipizide [Glucotrol -] 10 mg PO BID@0700,1630 #60 tablet 04/19/16 Insulin Glargine,Hum.rec.anlog 10 units SQ HS #1 vial 04/19/16 [Lantus (10mL VIAL) -] Methimazole [Tapazole -] 10 mg PO Q12H #60 tablet 04/19/16 Nifedipine [Procardia Xl] 90 mg PO DAILY #30 tab.er.24 04/19/16 Permethrin [Nix Complete] 324.86 ml MC ONCE #2 combo..pkg 03/19/18 Amox-Tr/K Cl [Augmentin - 875Mg 1 tab PO BID #14 tablet 05/06/18 Tablet] Ibuprofen 400 mg PO Q6H #30 tablet 05/30/18 Nitrofurantoin Macrocrystal 100 mg PO BID #14 capsule 05/30/18 [Macrodantin -] Nitrofurantoin Macrocrystal 100 mg PO BID #14 capsule 05/30/18 [Macrodantin -] REVIEW OF SYSTEMS CONSTITUTIONAL: fever, chills, diaphoresis Absent: generalized weakness, malaise, loss of appetite, weight change HEENT: Absent: rhinorrhea, nasal congestion, throat pain, throat swelling, difficulty swallowing, mouth swelling, ear pain, eye pain, visual changes CARDIOVASCULAR: Absent: chest pain, syncope, palpitations, irregular heart rate, lightheadedness , peripheral edema RESPIRATORY: Absent: cough, shortness of breath, dyspnea with exertion, orthopnea, wheezing, stridor, hemoptysis GASTROINTESTINAL: Absent:abdominal distension, nausea, vomiting, diarrhea, constipation, melena, hematochezia GENITOURINARY: dysuria, frequency, flank pain Absent: hesitancy, hematuria, genital pain ENDOCRINE: Absent: unexplained weight gain, unexplained weight loss, heat intolerance, cold intolerance NEUROLOGIC: Absent: headache, focal weakness or paresthesias, dizziness, unsteady gait, seizure, mental status changes, bladder or bowel incontinence PHYSICAL EXAMINATION Vital Signs - 24 hr 06/02/18 06/02/18 07:33 07:46 Temperature 98.5 F Pulse Rate 93 H Respiratory 24 H Rate Blood Pressure 152/91 O2 Sat by Pulse 100 100 Oximetry (%) GENERAL: in mild distress, a/o x 3 HEAD: nc/at EYES: Pupils equal, round and reactive to light, extraocular movements intact, sclera anicteric, conjunctiva clear. EARS, NOSE, THROAT: oropharynx clear without exudates. dry mucous membranes NECK: Normal range of motion, supple without lymphadenopathy, JVD, or masses. LUNGS: Breath sounds equal, clear to auscultation bilaterally. No wheezes, and no crackles. HEART: RRR, no murmurs appreciated ABDOMEN: Soft, diffuse tenderness to palpation in all quadrants. L CVA tenderness LOWER EXTREMITIES: 2+ pulses, warm, well-perfused. No calf tenderness. No peripheral edema. NEUROLOGICAL: Cranial nerves II-XII intact. PSYCHIATRIC: Cooperative. SKIN: Warm, dry, normal turgor, no rashes or lesions noted, normal capillary refill. Laboratory Results - last 24 hr 06/02/18 06/02/18 06/02/18 08:08 08:08 09:22 WBC 13.8 H RBC 5.07 Hgb 12.9 Hct 40.1 MCV 79.1 L MCH 25.5 L MCHC 32.2 RDW 13.8 Plt Count 231 MPV 8.1 Absolute Neuts (auto) 10.8 H Neutrophils % 77.7 Lymphocytes % 8.9 D Monocytes % 12.9 H Eosinophils % 0.1 Basophils % 0.4 Nucleated RBC % 0 Sodium 131 L Potassium 3.2 L Chloride 94 L Carbon Dioxide 21 Anion Gap 16 BUN 8 Creatinine 0.9 Creat Clearance w eGFR 68.66 Random Glucose 274 H Calcium 8.9 Total Bilirubin 1.0 AST 25 ALT 28 Alkaline Phosphatase 113 Total Protein 8.2 Albumin 3.2 L Lipase 100 Urine Color Yellow Urine Appearance Clear Urine pH 5.0 Ur Specific Era 1.014 Urine Protein Negative Urine Glucose (UA) 3+ H Urine Ketones 3+ H Urine Blood Negative Urine Nitrite Negative Urine Bilirubin Negative Urine Urobilinogen 1.0 Ur Leukocyte Esterase Negative Urine HCG, Qual 06/02/18 09:22 WBC RBC Hgb Hct MCV MCH MCHC RDW Plt Count MPV Absolute Neuts (auto) Neutrophils % Lymphocytes % Monocytes % Eosinophils % Basophils % Nucleated RBC % Sodium Potassium Chloride Carbon Dioxide Anion Gap BUN Creatinine Creat Clearance w eGFR Random Glucose Calcium Total Bilirubin AST ALT Alkaline Phosphatase Total Protein Albumin Lipase Urine Color Urine Appearance Urine pH Ur Specific Era Urine Protein Urine Glucose (UA) Urine Ketones Urine Blood Urine Nitrite Urine Bilirubin Urine Urobilinogen Ur Leukocyte Esterase Urine HCG, Qual Negative ASSESSMENT/PLAN: 43 yo F with a PMHx of IDDM, HTN, CVA x 2, thyroid cancer, HLD, presented to the ED because of abdominal pain, fevers of 101, nausea, vomiting, and L flank pain. #Sepsis 2/2 Pyelonephritis -CT scan: Heterogeneous enhancement of the L mid to mid lower kidney, laterally with stranding of the perinephric fat and a trace of effusion in the L flank suggestive of nephritis. No gross obstructing renal or ureteral stone is identified. -U/A: 3+ glucose, 3+ ketones -U/A on 05/30: 3+ LE, +Nitrite, cultures positive for E. coli -Received 2L IV Fluids NS in ER -Cont. IV fluids NS @ 125 -Blood culture, urine culture -hold macrobid -Start IV Ceftriaxone -Received 1 dose in ER -lactic acid normal #Elevated AG (16): -resolved #DM -hold home meds -glucose 275 -Insulin sliding scale -Levemir 10am at night -BGMs ACHS #HTN -cont. Nifedipine 60mg #FEN -IV fluids NS @ 125ml/hour -monitor electrolytes -npo #DVT -heparin sq tid dispo: admit med-surge Visit type - Emergency Visit Emergency Visit: Yes ED Registration Date: 06/02/18 Care time: The patient presented to the Emergency Department on the above date and was hospitalized for further evaluation of their emergent condition. - New Patient This patient is new to me today: Yes Date on this admission: 06/02/18 - Critical Care Critical Care patient: No
--- NOTE | 2018-06-02 11:29 | EKG ---
Test Reason : Blood Pressure : / mmHG Vent. Rate : 091 BPM Atrial Rate : 091 BPM P-R Int : 146 ms QRS Dur : 082 ms QT Int : 390 ms P-R-T Axes : 057 035 026 degrees QTc Int : 479 ms NORMAL SINUS RHYTHM POSSIBLE LEFT ATRIAL ENLARGEMENT BORDERLINE ECG WHEN COMPARED WITH ECG OF 04-APR-2016 21:18, NO SIGNIFICANT CHANGE WAS FOUND Confirmed by LORAINE ARGUETA MD ([id number]) on 06/02/2018 11:29:42 AM Referred By: Confirmed By:LORAINE ARGUETA MD
[2018-06-02] MEDS: SODIUM CHLORIDE 1,000 ML IV SCH ×2 (12:36→15:27)
--- NOTE | 2018-06-02 12:39 | PN ---
Teaching Attending Note Name of Resident: Rachel Lundberg ATTENDING PHYSICIAN STATEMENT I saw and evaluated the patient. I reviewed the resident's note and discussed the case with the resident. I agree with the resident's findings and plan as documented. SUBJECTIVE: CC: abd pain, flank pain and fever HPI: 43 y/o lady with h/o DM I, HTN, HLp, strokes, active Marijuana use, hyperthyroidism, thyroid carcinoma, athma, and recent ER visit who presented with Abd pain, fever , and L flank pain, with Nausea and vomiting. she was in ER on 05/30 , UA showed UTI and she was sent home on macrobid which she is using. that night she started to have worsening sx with dysuria, N/V/abd pain/fever . despite her illness she continued to take her Dm meds. she tells me she is type one diabetic and has never had DKA. she had recurrent UTis though and a pyelonephritis few years ago. she admits to using marijuana, last use was Monday. poor po intake in past 4 days . constipation . In ER, she was given 2 L of fluids and ceftriaxone based on urine cx form 05/30 OBJECTIVE: mild distress, awake and alert, and oriented x 3 , cooperative dry MM, no thrush, round equal pupils, reactive to light, EOMI, no facial droop. Cv: RRR. no MRG Lungs: CTAB Abd: soft, TTP in all quadrants, incomplete abd exam as she pushes examiner's hand. + L CVA tenderness Ext : no edema or erythema . little scab on L laterl malleolus ASSESSMENT AND PLAN: 43 y/o lady with h/o DM I, HTN, HLp, strokes, active Marijuana use, hyperthyroidism, thyroid carcinoma, athma, and recent ER visit who presented with Abd pain, fever , and L flank pain, with Nausea and vomiting. she was diagnosed with acute pyelonephritis 1- Sepsis due to acute pyelonephritis: CT scan images reviewed, L sided perinephric stranding . hypodense areas in L kidney. no stones noted. read is pending - check lactic acid - cont ceftriaxone - follow blood cx and urine cx sent today. no blood cx form 05/30 - IVF 2- Elevated AG: AG of 8 on 05/30 now 16. concern for DKA vs lactic acidosis - check lactic. - check ABG - repeat BMP stat - repeat BGM - will determine etiology and next step based on results 3- DM: as above, will determine etiology of high AG and ketones in urine. if in DKA , will start insulin gtt , and DKA protocol. 4- HTN: Nifedipine. 5- Microcytosis: check iron studies . 6- DVT px: heparin . Dispo : to be determined after repeat labs are back.
[2018-06-02] MEDS ORDERED: ACETAMINOPHEN 1000 MG/100 ML VIAL (NON FORMULARY) IVPB PRN (12:53)
[2018-06-02] MEDS ORDERED: PROCHLORPERAZINE INJECTION 10 MG/2 ML VIAL IVPB PRN (12:53)
[2018-06-02 13:20] LABS: ANION GAP 11 MMOL/L (8-16); BLOOD UREA NITROGEN 6 mg/dL (7-18); CALCIUM 8.5 mg/dL (8.5-10.1); CHLORIDE 103 mmol/L (98-107); CO2 23 mmol/L (21-32); CREATININE 0.5 mg/dL (0.55-1.3); GLUCOSE,RANDOM 220 mg/dL (74-106); POTASSIUM 3.7 mmol/L (3.5-5.1); SODIUM 137 mmol/L (136-145)
[2018-06-02 13:39] LABS: ALLENS TEST POSITIVE; ARTERIAL BLD GAS O2 SATURATION 97.3 % (95-98); ARTERIAL BLOOD GAS BASE EXCESS -1.8 meq/l (-2-2); ARTERIAL BLOOD GAS PCO2 30.1 mmHg (35-45); ARTERIAL BLOOD GAS PO2 96.9 mmHg (80-105); ARTERIAL BLOOD GAS pH 7.45 (7.35-7.45)
[2018-06-02] MEDS: HEPARIN NA (PORCINE) 5,000 UNITS/ML 1ML VIAL SQ SCH ×2 (14:01→22:31)
[2018-06-02] MEDS: INSULIN SLIDING SCALE (NOVOLOG) 1 VIAL SQ SCH ×2 (19:09→22:31)
[2018-06-02] MEDS: morphine SULFATE 4 MG/ML VIAL IVPUSH PRN (20:00)
[2018-06-02 20:24] VITALS: BMI 31.6
[2018-06-02] MEDS: ATORVASTATIN CA 10 MG TABLET (FP) PO SCH (21:56)
[2018-06-02] MEDS ORDERED: INSULIN (LEVEMIR) 100 UNITS/ML UNITS SQ SCH (22:00)
[2018-06-03] MEDS: morphine SULFATE 4 MG/ML VIAL IVPUSH PRN ×2 (01:32→08:29)
[2018-06-03] MEDS: SODIUM CHLORIDE 1,000 ML IV SCH ×2 (02:30→10:07)
[2018-06-03] MEDS: HEPARIN NA (PORCINE) 5,000 UNITS/ML 1ML VIAL SQ SCH ×3 (06:35→21:44)
[2018-06-03] MEDS: INSULIN SLIDING SCALE (NOVOLOG) 1 VIAL SQ SCH ×4 (06:35→21:31)
[2018-06-03 07:26] LABS: BASO % 0.4 % (0-2.0); EOS % 0.4 % (0-4.5); HEMATOCRIT 35.4 % (32.4-45.2); HEMOGLOBIN 11.4 GM/dL (10.7-15.3); LYMPH % 20.5 % (8-40); MCH 25.3 pg (25.7-33.7); MCHC 32.2 g/dl (32.0-36.0); MEAN CELL VOLUME 78.7 fl (80-96); MEAN PLT VOLUME 8.2 fl (7.5-11.1); MONO % 22.6 % (3.8-10.2); NEUT % 56.1 % (42.8-82.8); PLATELET COUNT 190 K/MM3 (134-434); RDW 13.2 % (11.6-15.6); WHITE BLOOD COUNT 6.7 K/mm3 (4.0-10.0)
[2018-06-03 07:45] LABS: ALBUMIN 2.5 g/dl (3.4-5.0); ALK PHOS 85 U/L (45-117); ANION GAP 10 MMOL/L (8-16); BILIRUBIN,TOTAL 0.4 mg/dL (0.2-1); BLOOD UREA NITROGEN 5 mg/dL (7-18); CHLORIDE 106 mmol/L (98-107); CO2 24 mmol/L (21-32); CREATININE 0.4 mg/dL (0.55-1.3); GLUCOSE,RANDOM 131 mg/dL (74-106); MAGNESIUM 1.9 mg/dL (1.8-2.4); PHOSPHOROUS 2.7 mg/dL (2.5-4.9); POTASSIUM 3.8 mmol/L (3.5-5.1); SGOT/AST 34 U/L (15-37); SGPT/ALT 25 U/L (13-61); SODIUM 140 mmol/L (136-145); TOT PROT 6.5 g/dl (6.4-8.2)
[2018-06-03] MEDS ORDERED: DEXTROSE 5%-WATER 100 ML IVPB ONE (09:58)
[2018-06-03] MEDS ORDERED: METHIMAZOLE 10 MG TABLET (FP) PO SCH (10:00)
[2018-06-03] MEDS: ASPIRIN 81 MG CHEWABLE TABLETS PO SCH (10:05)
[2018-06-03] MEDS: NIFEdipine E.R 60 MG TABLET (UD) PO SCH (10:06)
[2018-06-03] MEDS: CEFTRIAXONE 2 GM in DEXTROSE 5%-WATER 100 ML IVPB SCH (10:06)
[2018-06-03] MEDS ORDERED: ACETAMINOPHEN 1000 MG/100 ML VIAL (NON FORMULARY) IVPB PRN (10:21)
[2018-06-03] MEDS ORDERED: SODIUM CHLORIDE 1,000 ML IV SCH (10:26)
[2018-06-03] MEDS ORDERED: POLYETHYLENE GLYCOL 3350 119 GM BTL PO PRN (10:32)
[2018-06-03] MEDS: DOCUSATE SODIUM 100 MG CAPSULE (FP) PO SCH ×2 (12:29→21:31)
--- NOTE | 2018-06-03 15:47 | PN ---
Progress Note (short form) - Note Progress Note: Subjective: no fever or chills. No PAVON . No abd pain . no diarrhea. feels much better Objective: Vital Signs: Last Vital Signs Temp Pulse Resp BP Pulse Ox 98.8 F 103 H 20 134/71 99 06/03/18 14:56 06/03/18 14:56 06/03/18 14:56 06/03/18 14:56 06/02/18 21:00 Laboratory Results - last 24 hr 06/02/18 06/03/18 06/03/18 22:30 06:30 06:30 WBC 6.7 RBC 4.50 Hgb 11.4 Hct 35.4 MCV 78.7 L MCH 25.3 L MCHC 32.2 RDW 13.2 Plt Count 190 MPV 8.2 Absolute Neuts (auto) 3.8 Total Counted 100 Neutrophils % 56.1 D Neutrophils % (Manual) 53.0 Band Neutrophils % 2.0 Lymphocytes % 20.5 D Lymphocytes % (Manual) 23.0 Monocytes % 22.6 H Monocytes % (Manual) 21 H Eosinophils % 0.4 D Eosinophils % (Manual) 1.0 Basophils % 0.4 Nucleated RBC % 0 Microcytosis 1+ Sodium 140 Potassium 3.8 Chloride 106 Carbon Dioxide 24 Anion Gap 10 BUN 5 L Creatinine 0.4 L Creat Clearance w eGFR 175.04 POC Glucometer 140 Random Glucose 131 H Calcium 8.0 L Phosphorus 2.7 Magnesium 1.9 Ferritin 174.2 Total Bilirubin 0.4 AST 34 ALT 25 Alkaline Phosphatase 85 Total Protein 6.5 Albumin 2.5 L 06/03/18 06/03/18 06/03/18 06:30 06:34 12:27 WBC RBC Hgb Hct MCV MCH MCHC RDW Plt Count MPV Absolute Neuts (auto) Total Counted Neutrophils % Neutrophils % (Manual) Band Neutrophils % Lymphocytes % Lymphocytes % (Manual) Monocytes % Monocytes % (Manual) Eosinophils % Eosinophils % (Manual) Basophils % Nucleated RBC % Microcytosis Sodium Potassium Chloride Carbon Dioxide Anion Gap BUN Creatinine Creat Clearance w eGFR POC Glucometer 139 208 Random Glucose Calcium Phosphorus Magnesium Ferritin Cancelled Total Bilirubin AST ALT Alkaline Phosphatase Total Protein Albumin Physical Exam: NAD. Cv: RRR. no MRG Lungs: CTAB Abd: soft, NT, ND, NL BS. Ext : no edema or erythema . ASSESSMENT AND PLAN: 43 y/o lady with h/o DM I, HTN, HLp, strokes, active Marijuana use, hyperthyroidism, thyroid carcinoma, athma, and recent ER visit who presented with Abd pain, fever , and L flank pain, with Nausea and vomiting. she was diagnosed with acute pyelonephritis 1- Sepsis due to acute pyelonephritis: with G - bacteremia . - cont ceftriaxone - repat blood cx - Id consult - urine cx did not grow this admisison, but urine cx form 05/28 had mccabe sensitive E coli - decrease IVF. tolerating diet - dc morphine and add tramadol and tylenol - n/V resolved 2- DM: cont levemir ( increase to 15 units HS ) and SSI . can increase dose of levemir to home dose if needed . 3- HTN: Nifedipine. 4- Microcytosis: iron studies pending 5- DVT px: heparin . Dispo : HLOC Visit type - Emergency Visit Emergency Visit: Yes ED Registration Date: 06/02/18 Care time: The patient presented to the Emergency Department on the above date and was hospitalized for further evaluation of their emergent condition. - New Patient This patient is new to me today: No - Critical Care Critical Care patient: No
--- NOTE | 2018-06-03 15:53 | PN ---
Progress Note (short form) - Note Progress Note: ID CONSULT DICTATED ACUTE PYELONEPHRITIS GRAM NEGATIVE SEPSIS SECONDARY TO SOURCE AWAIT C/S CONTINUE CEFTRIAXONE
[2018-06-03] MEDS: traMADol HCL 50 MG TABLET PO PRN (18:09)
[2018-06-03] MEDS: ATORVASTATIN CA 10 MG TABLET (FP) PO SCH (21:31)
[2018-06-03] MEDS: INSULIN (LEVEMIR) 100 UNITS/ML UNITS SQ SCH (21:31)
[2018-06-04] MEDS: INSULIN SLIDING SCALE (NOVOLOG) 1 VIAL SQ SCH ×4 (06:22→22:14)
[2018-06-04] MEDS: HEPARIN NA (PORCINE) 5,000 UNITS/ML 1ML VIAL SQ SCH ×3 (06:22→22:13)
[2018-06-04] MEDS ORDERED: DEXTROSE 5%-WATER 100 ML IVPB ONE (13:05)
[2018-06-04] MEDS: DOCUSATE SODIUM 100 MG CAPSULE (FP) PO SCH ×2 (13:09→22:13)
[2018-06-04] MEDS: ASPIRIN 81 MG CHEWABLE TABLETS PO SCH (13:09)
[2018-06-04] MEDS: traMADol HCL 50 MG TABLET PO PRN ×2 (13:09→20:14)
[2018-06-04] MEDS: CEFTRIAXONE 2 GM in DEXTROSE 5%-WATER 100 ML IVPB SCH (13:10)
[2018-06-04] MEDS: METHIMAZOLE 5 MG TABLET (FP) PO SCH (13:10)
[2018-06-04] MEDS: NIFEdipine E.R 60 MG TABLET (UD) PO SCH (13:11)
--- NOTE | 2018-06-04 17:01 | PROC ---
Procedure Note Procedure: VASCULAR SURGERY Called by patient's RN as they are unable to obtain peripheral IV access after multiple attempts. 20ga angiocath placed into her RIGHT EJ. Aspirates and flushes easily. Line ok to use.
--- NOTE | 2018-06-04 17:43 | PN ---
Teaching Attending Note Name of Resident: Angelika Carlin ATTENDING PHYSICIAN STATEMENT I saw and evaluated the patient. I reviewed the resident's note and discussed the case with the resident. I agree with the resident's findings and plan as documented. SUBJECTIVE: No fever or chills . No PAVON , feels better. minial abd pain OBJECTIVE: NAD. Cv: RRR. no MRG Lungs: CTAB Abd: soft, TTP in suprapubic area and LUQ. + L CVA tenderness Ext : no edema or erythema . ASSESSMENT AND PLAN: 43 y/o lady with h/o DM I, HTN, HLp, strokes, active Marijuana use, hyperthyroidism, thyroid carcinoma, athma, and recent ER visit who presented with Abd pain, fever, and L flank pain, with Nausea and vomiting. she was diagnosed with acute pyelonephritis 1- Sepsis due to acute pyelonephritis: with E coli bacteremia. - cont ceftriaxone - follow repeat blood cx - Id consult apreciated - Dc IVF - Cont tramadol and tylenol 2- DM: cont levemir and SSI . can increase dose of levemir to home dose if needed . 3- HTN: Nifedipine. 4- Microcytosis: iron studies pending 5- DVT px: heparin. Dispo : HLOC
--- NOTE | 2018-06-04 19:30 | PN ---
Physical Exam: SUBJECTIVE: Patient seen and examined at bedside this morning. No acute events overnight. Patient still reports left flank and suprapubic pain that was relieved by Tylenol and Tramadol. She is able to tolerate regular diet, and had normal bowel movements. She denies any fever, chills, headache, nausea, vomiting , chest pain, shortness of breath, dysuria, hematuria or diarrhea. OBJECTIVE: Vital Signs Temperature 98.6 F 06/04/18 18:00 Pulse Rate 91 H 06/04/18 18:00 Respiratory Rate 20 06/04/18 18:00 Blood Pressure 142/70 06/04/18 18:00 O2 Sat by Pulse Oximetry (%) 99 06/04/18 09:00 GENERAL: The patient is awake, alert, and fully oriented, in no acute distress. HEAD: Normal with no signs of trauma. EYES: PERRLA, EOMI, sclera anicteric, conjunctiva clear. ENT: oropharynx clear without exudates, moist mucous membranes. NECK: Trachea midline, full range of motion, supple. LUNGS: Breath sounds equal, clear to auscultation bilaterally. HEART: Regular rate and rhythm, S1, S2 without murmur, rub or gallop. ABDOMEN: Soft, +LLQ and left flank tenderness, nondistended, normoactive bowel sounds. EXTREMITIES: 2+ pulses, warm, well-perfused, no edema. NEUROLOGICAL: Cranial nerves II through XII grossly intact. Normal speech and gait. PSYCH: Normal mood, normal affect. SKIN: Warm, dry, normal turgor, no rashes or lesions noted Laboratory Results - last 24 hr 06/03/18 06/04/18 06/04/18 21:30 05:40 17:48 POC Glucometer 150 115 187 Active Medications Generic Name Dose Route Start Last Admin Trade Name Freq PRN Reason Stop Dose Admin Acetaminophen 1,000 mg 06/03/18 10:21 Ofirmev Injection - IVPB Q6H PRN PAIN LEVEL 1-5 Aspirin 81 mg 06/03/18 10:00 06/04/18 13:09 Asa - PO 81 mg DAILY HERBIE Administration Atorvastatin Calcium 10 mg 06/02/18 22:00 06/03/18 21:31 Lipitor - PO 10 mg HS HERBIE Administration Docusate Sodium 100 mg 06/03/18 10:45 06/04/18 13:09 Colace - PO 100 mg BID HERBIE Administration Heparin Sodium (Porcine) 5,000 unit 06/02/18 14:00 06/04/18 17:13 Heparin - SQ Not Given TID HERBIE Ceftriaxone Sodium 2 gm/ 100 mls @ 100 mls/hr 06/03/18 10:00 06/04/18 13:10 Dextrose IVPB 100 mls/hr DAILY HERBIE Administration Protocol Insulin Aspart 1 vial 06/03/18 22:54 06/04/18 17:50 Novolog Vial Sliding Scale - SQ 2 units ACHS HERBIE Administration Protocol Insulin Detemir 15 units 06/03/18 22:00 06/03/18 21:31 Levemir Vial SQ 15 units HS HERBIE Administration Methimazole 5 mg 06/04/18 10:00 06/04/18 13:10 Tapazole - PO 5 mg DAILY HERBIE Administration Nifedipine 60 mg 06/03/18 10:00 06/04/18 13:11 Procardia Xl - PO 60 mg DAILY HERBIE Administration Polyethylene Glycol 17 gm 06/03/18 10:32 Miralax (For Daily Use) - PO DAILY PRN CONSTIPATION Prochlorperazine Edisylate 10 mg 06/02/18 12:53 Compazine Injection - IVPB Q4H PRN NAUSEA AND/OR VOMITING Tramadol HCl 50 mg 06/03/18 10:20 06/04/18 13:09 Ultram - PO 50 mg Q6H PRN Administration PAIN LEVEL 6-10 CT scan: Heterogeneous enhancement of the L mid to mid lower kidney, laterally with stranding of the perinephric fat and a trace of effusion in the L flank suggestive of nephritis. No gross obstructing renal or ureteral stone is identified. ASSESSMENT/PLAN: Patient is a 43 year old female with past medical history of IDDM, HTN, HLD, CVAx2, thyroid cancer, presented to the ED due to fevers, nausea and vomiting, abdominal and left flank pain. #Sepsis 2/2 Acute Pyelonephritis -Urine culture (05/28) grew mccabe-sensitive E. Coli -Blood culture (06/02) grew LFGNB -Repeat blood culture (06/03) is negative for any growth. -IV fluids discontinued. -Continue IV ceftriaxone 2 gm daily -Tylenol and Tramadol PRN for pain. -ID (Dr. Nguyễn) consulted. REcommendations appreciated. #Microcytosis -H/H stable. -Iron studies pending #IDDM -Levemir 15units sq HS -BGM ACHS -Insulin sliding scale implemented #HTN: chronic -Cotinue Nifedipine 60mg daily #HLD -Continue Lipitor 10mg PO HS #FEN -Not on any standing fluids -Electrolytes wnl -Diabetic diet #Prophylaxis -Heparin 5000unit sq tid #Dispo -med surg -full code Visit type - Emergency Visit Emergency Visit: Yes ED Registration Date: 06/02/18 Care time: The patient presented to the Emergency Department on the above date and was hospitalized for further evaluation of their emergent condition. - New Patient This patient is new to me today: Yes Date on this admission: 06/04/18 - Critical Care Critical Care patient: No
[2018-06-04] MEDS ORDERED: ACETAMINOPHEN 500 MG TABLET (FP) PO PRN (21:10)
[2018-06-04] MEDS: ATORVASTATIN CA 10 MG TABLET (FP) PO SCH (22:13)
[2018-06-04] MEDS: INSULIN (LEVEMIR) 100 UNITS/ML UNITS SQ SCH (22:13)
[2018-06-05] MEDS: INSULIN SLIDING SCALE (NOVOLOG) 1 VIAL SQ SCH ×3 (06:52→17:38)
[2018-06-05] MEDS: HEPARIN NA (PORCINE) 5,000 UNITS/ML 1ML VIAL SQ SCH ×2 (06:52→13:31)
[2018-06-05] MEDS ORDERED: PT OWN MED DRAWER 7, Y5N ONE (07:18)
[2018-06-05 07:50] LABS: BASO % 0.2 % (0-2.0); EOS % 1.3 % (0-4.5); HEMATOCRIT 36.2 % (32.4-45.2); HEMOGLOBIN 11.8 GM/dL (10.7-15.3); LYMPH % 28.7 % (8-40); MCH 25.1 pg (25.7-33.7); MCHC 32.7 g/dl (32.0-36.0); MEAN CELL VOLUME 76.6 fl (80-96); MEAN PLT VOLUME 7.7 fl (7.5-11.1); MONO % 18.9 % (3.8-10.2); NEUT % 50.9 % (42.8-82.8); PLATELET COUNT 235 K/MM3 (134-434); RBC 4.72 M/mm3 (3.60-5.2); RDW 13.2 % (11.6-15.6)
[2018-06-05] MEDS ORDERED: DEXTROSE 5%-WATER 100 ML IVPB ONE (09:57)
[2018-06-05] MEDS: DOCUSATE SODIUM 100 MG CAPSULE (FP) PO SCH (10:14)
[2018-06-05] MEDS: NIFEdipine E.R 60 MG TABLET (UD) PO SCH (10:14)
[2018-06-05] MEDS: ASPIRIN 81 MG CHEWABLE TABLETS PO SCH (10:14)
[2018-06-05] MEDS: CEFTRIAXONE 2 GM in DEXTROSE 5%-WATER 100 ML IVPB SCH (10:15)
[2018-06-05] MEDS: METHIMAZOLE 5 MG TABLET (FP) PO SCH (10:15)
[2018-06-05] MEDS: traMADol HCL 50 MG TABLET PO PRN (10:21)
--- NOTE | 2018-06-05 15:06 | PN ---
Teaching Attending Note Name of Resident: Angelika Carlin ATTENDING PHYSICIAN STATEMENT I saw and evaluated the patient. I reviewed the resident's note and discussed the case with the resident. I agree with the resident's findings and plan as documented. SUBJECTIVE: no fever or chills. No Abd pain. No PAVON . feels much better . does not want to go back to [facility] OBJECTIVE: NAD. Cv: RRR. no MRG Lungs: CTAB Abd: soft, NT, nl BS Ext : no edema or erythema . ASSESSMENT AND PLAN: 43 y/o lady with h/o DM I, HTN, HLp, strokes, active Marijuana use, hyperthyroidism, thyroid carcinoma, athma, and recent ER visit who presented with Abd pain, fever, and L flank pain, with Nausea and vomiting. she was diagnosed with acute pyelonephritis 1- Sepsis due to acute pyelonephritis: with E coli bacteremia. - no more signs of sepsis , repeat blood cx neg x 48 hr. switch to po Abx, as per d/w ID 2- DM: cont levemir at home dose after dc. dc her glipizid eand add SSI to void hypoglecemia. cont metformin at dc 3- HTN: Nifedipine. 4- Microcytosis: iron studies pending . to be followed as out pt Dc home. she refused going back to [facility] Microbiology 06/02/18 09:47 Blood - Peripheral Venous Blood Culture - Preliminary NO GROWTH OBTAINED AFTER 72 HOURS, INCUBATION TO CONTINUE FOR 2 DAYS. 06/03/18 08:15 Blood - Peripheral Venous Blood Culture - Preliminary NO GROWTH OBTAINED AFTER 48 HOURS, INCUBATION TO CONTINUE FOR 3 DAYS. 06/03/18 08:15 Blood - Peripheral Venous Blood Culture - Preliminary NO GROWTH OBTAINED AFTER 48 HOURS, INCUBATION TO CONTINUE FOR 3 DAYS. 06/02/18 09:47 Blood - Peripheral Venous Blood Culture - Final Escherichia Coli 06/02/18 09:22 Urine - Urine Clean Catch Urine Culture - Final Contaminated: Please Repeat
[2018-06-05 15:50] VITALS: TEMP 98.2
[2018-06-05 16:25] VITALS: BP 151/85; PULSE 86
--- NOTE | 2018-06-05 17:43 | DS ---
Physical Exam: SUBJECTIVE: Patient seen and examined at bedside this morning. Patient is feeling well and has minimal left flank pain and no more abdominal pain. No acute events overnight. OBJECTIVE: Vital Signs Temperature 98.2 F 06/05/18 15:46 Pulse Rate 86 06/05/18 16:25 Respiratory Rate 20 06/05/18 15:46 Blood Pressure 151/85 06/05/18 16:25 O2 Sat by Pulse Oximetry (%) 99 06/04/18 09:00 PHYSICAL EXAM GENERAL: The patient is awake, alert, and fully oriented, in no acute distress. HEAD: Normal with no signs of trauma. EYES: PERRLA, EOMI, sclera anicteric, conjunctiva clear. ENT: oropharynx clear without exudates, moist mucous membranes. NECK: Trachea midline, full range of motion, supple. LUNGS: Breath sounds equal, clear to auscultation bilaterally. HEART: Regular rate and rhythm, S1, S2 without murmur, rub or gallop. ABDOMEN: Soft, +minimal left flank tenderness, nondistended, normoactive bowel sounds. EXTREMITIES: 2+ pulses, warm, well-perfused, no edema. NEUROLOGICAL: Cranial nerves II through XII grossly intact. Normal speech and gait. PSYCH: Normal mood, normal affect. SKIN: Warm, dry, normal turgor, no rashes or lesions noted LABS Laboratory Results - last 24 hr 06/04/18 06/04/18 06/05/18 17:48 22:09 06:24 WBC RBC Hgb Hct MCV MCH MCHC RDW Plt Count MPV Absolute Neuts (auto) Neutrophils % Lymphocytes % Monocytes % Eosinophils % Basophils % Nucleated RBC % POC Glucometer 187 199 132 06/05/18 06/05/18 07:00 11:50 WBC 5.0 RBC 4.72 Hgb 11.8 Hct 36.2 MCV 76.6 L MCH 25.1 L MCHC 32.7 RDW 13.2 Plt Count 235 D MPV 7.7 Absolute Neuts (auto) 2.6 Neutrophils % 50.9 Lymphocytes % 28.7 D Monocytes % 18.9 H Eosinophils % 1.3 D Basophils % 0.2 Nucleated RBC % [address] scan: Heterogeneous enhancement of the L mid to mid lower kidney, laterally with stranding of the perinephric fat and a trace of effusion in the L flank suggestive of nephritis. No gross obstructing renal or ureteral stone is identified. HOSPITAL COURSE: Date of Admission:06/02/18 Date of Discharge: 06/05/18 Patient is a 43 year old female with past medical history of IDDM, HTN, HLD, CVAx2, thyroid cancer, presented to the ED due to fevers, nausea and vomiting, abdominal and left flank pain. Patient was started on Ceftriaxone 2gm and IV fluids. ID consulted. Patient continued to improve throughout his hospital stay. She received Ceftriaxone for 4 days and was discharged with instructions to continue Ceftin 500mg BID for 10 more days. Prior to discharge, patient was also instructed to stop taking glipizide due to hypoglycemic episodes and was instructed to continue Insulin Glargine and start insulin sliding scale. Minutes to complete discharge: 38 Discharge Summary Reason For Visit: PYELONEPHRITIS Current Active Problems Pyelonephritis (Acute) Condition: Improved - Instructions Diet, Activity, Other Instructions: Your visit You were admitted to the hospital because you were having belly pains and fever. Your labs showed that you had a kidney and a urinary tract infection. You were treated with IV antibiotics to which you responded well. Please continue taking the antibiotic for 10 more days. Medications Please take the following medications as prescribed: 1. Ceftin 500mg twice a day for 10 days. 2. Tylenol 500mg every 6 hours as needed for pain. Please STOP taking Glipizide. Continue Insulin Glargine and Metformin. You will be started on Insulin sliding scale for better control of your blood sugar. Take your blood sugar three times a day before meals and see sliding scale below for the dosage: Blood sugar Units 100-150 0 151-200 2 201-250 4 251-300 6 301-350 8 351-400 10 >400 12 Follow up Please follow-up with your primary care doctor within a week. Additional info Call 911 or go to the ED if with any worsening fever, chills, headache, dizziness, chest pain, shortness of breath, belly pain, bloody urine or stools or any new concerns noted. Referrals: Jovanny Nguyễn MD [Staff Physician] - Elizabeth Saeed NP [Primary Care Provider] - 1 Week Disposition: HOME - Home Medications Comprehensive Discharge Medication List: Ambulatory Orders Atorvastatin Ca [Lipitor] 10 mg PO HS 06/02/18 Insulin Glargine,Hum.rec.anlog [Lantus Solostar PEN -] 20 units SQ HS 06/02/18 Methimazole [Tapazole -] 5 mg PO DAILY 06/02/18 Nifedipine [Procardia Xl] 60 mg PO DAILY 06/02/18 metFORMIN HCL [Metformin HCl] 500 mg PO BID 06/02/18 Acetaminophen [Tylenol -] 500 mg PO Q6H #30 tablet 06/05/18 Aspirin [Adult Aspirin Regimen] 81 mg PO DAILY #30 tablet. 06/05/18 Cefuroxime Axetil [Ceftin -] 500 mg PO Q12H #20 tablet 06/05/18 Insulin Sliding Scale [Novolog Vial Sliding Scale -] See Protocol SQ TIDAC #1 pen 06/05/18 This patient is new to me today: Yes Date on this admission: 06/05/18 Emergency Visit: Yes ED Registration Date: 06/02/18 Care time: The patient presented to the Emergency Department on the above date and was hospitalized for further evaluation of their emergent condition. Critical Care patient: No - Discharge Referral Referred to [facility] No
== END 2018-06-05 17:47 | disposition home or self-care (01) | DRG 690 ==
LOC: JER 07:20 → JERBED 10:40 → OBSVTOIN 11:06 → J5S 15:27
PROVIDERS: ADMIT Internal Medicine; ATTEND Internal Medicine
PROC: 05HP33Z Insertion of Infusion Device into Right External Jugular Vein, Percutaneous Approach (ICD-10-PCS; principal; 2018-06-04)
DX: N10 Acute pyelonephritis (principal); E11.9 Type 2 diabetes mellitus without complications; I10 Essential (primary) hypertension; E78.5 Hyperlipidemia, unspecified; F17.210 Nicotine dependence, cigarettes, uncomplicated; R11.2 Nausea with vomiting, unspecified; I45.81 Long QT syndrome; E05.90 Thyrotoxicosis, unspecified without thyrotoxic crisis or storm; R50.9 Fever, unspecified; B96.20 Unspecified Escherichia coli [E. coli] as the cause of diseases classified elsewhere; J45.909 Unspecified asthma, uncomplicated; F12.10 Cannabis abuse, uncomplicated; Z85.850 Personal history of malignant neoplasm of thyroid; Z86.73 Personal history of transient ischemic attack (TIA), and cerebral infarction without residual deficits; Z79.4 Long term (current) use of insulin
CPT/HCPCS: 36415; 36600; 74177-TC; 80048; 80053; 81003; 82728; 82803; 82962; 83540; 83550; 83605; 83690; 83735; 84100; 84703; 85025; 87040; 87086; 87186; 93005; 93010; 97116-GP; 99283-25; G0378; J1644; J7030

== ENCOUNTER 2018-08-20 20:40 | Inpatient (IN) | payer OTHER ==
--- NOTE | 2018-08-20 22:00 | PDOC ---
History of Present Illness - General Chief Complaint: Syncope/Near Syncope Stated Complaint: FALL Past History - Past Medical History Allergies/Adverse Reactions: Allergies Allergy/AdvReac Type Severity Reaction Status Date / Time hydromorphone HCl Allergy PALPITATION Verified 08/20/18 20:58 [From Dilaudid] Home Medications: Ambulatory Orders RX: Atorvastatin Ca [Lipitor] 10 mg PO HS 06/02/18 RX: Insulin Glargine,Hum.rec.anlog [Lantus Solostar PEN -] 20 units SQ HS RX: Methimazole [Tapazole -] 5 mg PO DAILY 06/02/18 RX: Nifedipine [Procardia Xl] 60 mg PO DAILY 06/02/18 RX: metFORMIN HCL [Metformin HCl] 500 mg PO BID 06/02/18 Acetaminophen [Tylenol -] 500 mg PO Q6H #30 tablet 06/05/18 Cefuroxime Axetil [Ceftin -] 500 mg PO Q12H #20 tablet 06/05/18 RX: Aspirin [Adult Aspirin Regimen] 81 mg PO DAILY #30 tablet. 06/05/18 RX: Insulin Sliding Scale [Novolog Vial Sliding Scale -] See Protocol SQ TIDAC # 1 pen 06/05/18 Anemia: No Asthma: Yes Cancer: No Cardiac Disorders: No CVA: Yes (10/2013) COPD: No CHF: No Dementia: No Diabetes: Yes GI Disorders: No Disorders: Yes ( KIDNEY STONES 2012) HTN: Yes Hypercholesterolemia: No Kidney Stones: Yes Liver Disease: No Seizures: No Thyroid Disease: Yes (Graves disease, hyperthyroidism) - Surgical History Abdominal Surgery: Yes (HERNIA) Appendectomy: No Cardiac Surgery: No Cholecystectomy: No Lung Surgery: No Neurologic Surgery: No Orthopedic Surgery: No - Reproductive History PID: No - Immunization History Immunization Up to Date: Yes - Suicide/Smoking/Psychosocial Hx Smoking Status: Yes Smoking History: Current some day smoker Have you smoked in the past 12 months: Yes Number of Cigarettes Smoked Daily: 2 If you are a former smoker, when did you quit?: 02/07 Cigars Per Day: 0 Information on smoking cessation initiated: No 'Breaking Loose' booklet given: 04/04/16 Hx Alcohol Use: Yes Drug/Substance Use Hx: Yes Substance Use Type: Marijuana Hx Substance Use Treatment: Yes (She has been attending [facility] since Sep 2015 ) *DC/Admit/Observation/Transfer - Referrals Referrals: Elizabeth Saeed, PATIENT SAFETY MANAGER [Primary Care Provider] - - Patient Instructions - Post Discharge Activity
[2018-08-20] MEDS ORDERED: ACETAMINOPHEN 1000 MG/100 ML VIAL (NON FORMULARY) IVPB ONE (22:31)
--- NOTE | 2018-08-20 22:32 | PDOC ---
History of Present Illness - General Chief Complaint: Syncope/Near Syncope Stated Complaint: FALL Time Seen by Provider: 08/20/18 21:58 - History of Present Illness Initial Comments: 08/20/18 22:36 The patient is a 43 year old female with a history of HTN, HLD, DM, CVAs, Thyroid CA, Moyamoya who presents for evaluation for syncope. The patient reports that she was walking out of her house when she experienced lightheadedness and tunnel vision just prior to "passing out". She states that she lost consciousness for a minute or two with noted head trauma. She notes headache after the syncopal episode. She notes that the last time she had a syncopal episode it was in 2016 and due to a stroke. She otherwise denies fevers, chills, SOB, chest pain, back pain, nausea, vomiting, abdominal pain, numbness, tingling, weakness, or changes with urination or bowel movements. Past History - Past Medical History Allergies/Adverse Reactions: Allergies Allergy/AdvReac Type Severity Reaction Status Date / Time hydromorphone HCl Allergy PALPITATION Verified 08/20/18 20:58 [From Dilaudid] Home Medications: Ambulatory Orders Atorvastatin Ca [Lipitor] 10 mg PO HS 06/02/18 Insulin Glargine,Hum.rec.anlog [Lantus Solostar PEN -] 18 units SQ HS 06/02/18 Methimazole [Tapazole -] 10 mg PO DAILY 06/02/18 Nifedipine [Procardia Xl] 60 mg PO DAILY 06/02/18 metFORMIN HCL [Metformin HCl] 500 mg PO BID 06/02/18 Acetaminophen [Tylenol -] 500 mg PO Q6H #30 tablet 06/05/18 Aspirin [Adult Aspirin Regimen] 81 mg PO DAILY #30 tablet. 06/05/18 Insulin Sliding Scale [Novolog Vial Sliding Scale -] See Protocol SQ TIDAC #1 pen 06/05/18 Glipizide 5 mg PO BID 08/21/18 Anemia: No Asthma: Yes Cancer: No Cardiac Disorders: No CVA: Yes (10/2013) COPD: No CHF: No Dementia: No Diabetes: Yes GI Disorders: No Disorders: Yes ( KIDNEY STONES 2012) HTN: Yes Hypercholesterolemia: No Kidney Stones: Yes Liver Disease: No Seizures: No Thyroid Disease: Yes (Graves disease, hyperthyroidism) - Surgical History Abdominal Surgery: Yes (HERNIA) Appendectomy: No Cardiac Surgery: No Cholecystectomy: No Lung Surgery: No Neurologic Surgery: No Orthopedic Surgery: No - Reproductive History PID: No - Immunization History Immunization Up to Date: Yes - Suicide/Smoking/Psychosocial Hx Smoking Status: Yes Smoking History: Current some day smoker Have you smoked in the past 12 months: Yes Number of Cigarettes Smoked Daily: 2 If you are a former smoker, when did you quit?: 02/07 Cigars Per Day: 0 Information on smoking cessation initiated: No 'Breaking Loose' booklet given: 04/04/16 Hx Alcohol Use: Yes Drug/Substance Use Hx: Yes Substance Use Type: Marijuana Hx Substance Use Treatment: Yes (She has been attending [facility] since Sep 2015 ) Review of Systems - Review of Systems Comments:: 08/20/18 22:41 Constitutional: No fevers, chills, fatigue, malaise HEENT: No Rhinorrhea, nasal congestion, visual changes Cardiovascular: Syncope, Lightheadedness. No chest pain, palpitations, Respiratory: No Cough, SOB, Hemoptysis, Gastrointestinal: No Abdominal pain, Nausea, Vomiting, Constipation, Diarrhea, Melena Genitourinary: No Dysuria, Frequency, Urgency, Hesitancy, Hematuria, Flank pain Musculoskeletal: No Myalgia, arthralgia Skin: No rashes, itching, bruising, pallor Neurologic: Headache. No Dizziness, Numbness, Weakness, or Tingling Psychiatric: No Hallucinations. No SI or HI Is the patient limited Norwegian proficient: No *Physical Exam - Vital Signs Last Vital Signs Temp Pulse Resp BP Pulse Ox 98.3 F 96 H 18 133/84 100 08/20/18 20:56 08/20/18 20:56 08/20/18 20:56 08/20/18 20:56 08/20/18 20:56 - Physical Exam Comments: 08/20/18 22:41 General Appearance: Nourished. No Apparent Distress HEENT: EOMI, JASON. No Pharyngeal Erythema, Tonsillar Exudate, Tonsillar Erythema Neck: No Cervical Lymphadenopathy Respiratory/Chest: Lungs Clear, Normal Breath Sounds. No Crackles, Rales, Rhonchi, Wheezing Cardiovascular: Regular Rhythm, Regular Rate. No Murmur, Gallops, Rubs Gastrointestinal/Abdominal: Normal Bowel Sounds, Soft. No Guarding, Rebound, Tenderness Musculoskeletal: No CVA Tenderness Extremity: Normal Capillary Refill Integumentary: Normal Color, Dry, Warm Neurologic: senior vice president & general counsel II-XII NML intact, Fully Oriented, Alert, Normal Mood/Affect, Normal Response, Motor Strength 5/5. ED Treatment Course - LABORATORY CBC & Chemistry Diagram: 08/21/18 06:44 08/22/18 06:40 - RADIOLOGY Radiology Studies Ordered: Category Date Time Status HEAD CT WITHOUT CONTRAST [CT] Stat CT Scan 08/20/18 22:30 Ordered Medical Decision Making - Medical Decision Making 08/20/18 22:42 The patient is a 43 year old female with a history of HTN, HLD, DM, CVAs, Thyroid CA, Moyamoya who presents for evaluation for syncope. Differential includes but is not limited to: Intracranial process, Cardiogenic Syncope, Neurogenic Syncope, Vaso-vagal Syncope, ACS, Arrhythmia, Infectious, Metabolic Derangement. Given the patient's history and physical exam, we will obtain a cbc , cmp, troponin, tsh, ekg, head CT to evaluate further. We will continue to monitor and reassess while here in the ED. 08/20/18 23:56 Patient is pending lab work up and head CT imaging. The patient was signed out to the night team pending lab and imaging results and dispo. *DC/Admit/Observation/Transfer Diagnosis at time of Disposition: Syncope and collapse - Discharge Dispostion Disposition: HOME Condition at time of disposition: Improved - Referrals - Patient Instructions - Post Discharge Activity
[2018-08-20] MEDS ORDERED: ACETAMINOPHEN INJECTION 100 ML IVPB ONE (23:10)
--- NOTE | 2018-08-21 00:04 | PDOC ---
Rapid Medical Evaluation Chief Complaint: Syncope/Near Syncope Time Seen by Provider: 08/20/18 21:58 Medical Evaluation: Allergies Allergy/AdvReac Type Severity Reaction Status Date / Time hydromorphone HCl Allergy PALPITATION Verified 08/20/18 20:58 [From Dilaudid] Vital Signs Temp Pulse Resp BP Pulse Ox 98.3 F 96 H 18 133/84 100 08/20/18 20:56 08/20/18 20:56 08/20/18 20:56 08/20/18 20:56 08/20/18 20:56 08/21/18 00:02 43 yo F with h/o HTN, DM, CVA's, thyroid ca. Moyamoya who p/w syncopal event. Patient reports ambulating at grocery store, at approximately 0730 PM, when patient felt lightheaded for 30 seconds from car to store, with subsequent syncope and collapse. Reports LOC for unknown amount of time, with absent report of witnessed convulsions. Reports ongoing lightheadedness. Denies chest pain, SOB, F/C, N/V, abdominal pain, diarrhea, BPR, hematuria, urinary complaints, sensory change. Reports prior episode syncope 2016 at time of CVA. Pt. endorsed by Dr. Munson. Vitals wnl, AF, A&Ox3. Absent neurological deficits on physical exam. Patient pending labs CT head imaging, admit for syncope with collapse. Ed course: 08/21/18 02:12 EKG: NSR with absent MERCEDES, STD. Nml axis. Nml R wave progression. Absent Q waves. Laboratory Tests 08/21/18 08/21/18 00:56 01:25 WBC 7.0 Hgb 11.6 Hct 36.4 Plt Count 198 BUN 7.0 Creatinine 0.3 L 08/21/18 02:25 CTH: Nonacute left frontal temporal infarct with ex vacuo dilatation of the left frontal horn. Old small vessel infarct right caudate head. Very small nonacute infarct high right frontal lobe.. No obvious acute infarct. No hemorrhage. No mass. Osseous structures are intact. 08/21/18 02:[address] to medicine [address] leal. Admitted. Discharge Disposition - Diagnosis Syncope and collapse - Discharge Dispostion Last Admission D/C Date: 06/05/18 Decision to Admit order: Yes - Referrals Referrals: Elizabeth Saeed NP [Primary Care Provider] - - Patient Instructions - Post Discharge Activity ED Treatment Course - LABORATORY CBC & Chemistry Diagram: 08/21/18 00:56 08/21/18 01:25 - ADDITIONAL ORDERS Additional order review: Laboratory Results 08/21/18 08/20/18 08/20/18 01:25 23:45 23:45 Sodium 138 Cancelled Potassium 4.1 Cancelled Chloride 104 Cancelled Carbon Dioxide 28 Cancelled Anion Gap 7 L Cancelled BUN 7.0 Cancelled Creatinine 0.3 L Cancelled Est GFR (CKD-EPI)AfAm 163.68 Cancelled Est GFR (CKD-EPI)NonAf 141.22 Cancelled Random Glucose 196 H Cancelled Calcium 9.3 Cancelled Total Bilirubin 0.5 Cancelled AST 36 Cancelled ALT 51 Cancelled Alkaline Phosphatase 110 Cancelled Creatine Kinase Cancelled Troponin I Cancelled Total Protein 7.5 Cancelled Albumin 3.2 L Cancelled TSH Cancelled Serum , Qual Negative 08/21/18 00:56 RBC 4.87 MCV 74.8 L MCHC 31.8 L RDW 14.1 MPV 8.2 Neutrophils % 44.0 Lymphocytes % 44.7 H D Monocytes % 10.0 Eosinophils % 0.8 Basophils % 0.5 - RADIOLOGY Radiology Studies Ordered: 08/21/18 02:25 Patient Information: : 1975 Order Type: Preliminary Name: HIMANSHU GLORIA Sex: F Study Description: CT HEAD Modality: CT Location: [facility] Referring Physician: ANKITA WHITE Comments: Maged Salter MD wrote on Aug 21, 2018 at 02:08 AM: Referring Physician: ANKITA WHITE Patient Name: FAIZAN DOWNS THIS IS A PRELIMINARY REPORT FROM [facility] DATE OF SERVICE: 2018-08-21 00:36:06 IMAGES: 173 EXAM: HEAD CT WITHOUT CONTRAST HISTORY: Syncope COMPARISON: November 30, 2013 FINDINGS: Nonacute left frontal temporal infarct with ex vacuo dilatation of the left frontal horn. Old small vessel infarct right caudate head. Very small nonacute infarct high right frontal lobe.. No obvious acute infarct. No hemorrhage. No mass. Osseous structures are intact. CONFIDENTIALITY NOTICE: This information is intended only for the use of the recipient(s) named above. If you are not the intended recipient, or a person responsible for delivering it to the intended recipient, you are hereby notified that any disclosure, copying, distribution or use of any of the information contained in or attached to this transmission is STRICTLY PROHIBITED. If you have received this transmission in error, please immediately notify [facility] and destroy the original transmission and its attachments without saving them in any manner [address] [place] [address] Phone: [phone]) Fax: Email: [email or web address] Patient Information: : 1975 Order Type: Preliminary Name: HIMANSHU GLORIA Sex: F Study Description: CT HEAD Modality: CT Location: [facility] Referring Physician: ANKITA WHITE One or more of the following dose reduction techniques were used: automated exposure control, adjustment of the mA and/or kV according to patient size, use of iterative reconstructive technique. THIS DOCUMENT HAS BEEN ELECTRONICALLY SIGNED Maged Salter MD 08/21/2018 02:07 MARTHA Ford. Please call [facility] [phone]) with questions. Maged Salter MD Clinicians - Please contact [facility] with further questions at [phone]) Patients - Please contact your Ordering Provider with questions. - Medications Given in the ED: ED Medications Discontinued Medications Generic Name Dose Route Start Last Admin Trade Name Freq PRN Reason Stop Dose Admin Acetaminophen 1,000 mg 08/20/18 22:31 08/21/18 01:45 Ofirmev Injection - IVPB 08/20/18 22:32 1,000 mg ONCE ONE Administration
[2018-08-21 01:24] LABS: EOS % 0.8 % (0-4.5); HEMOGLOBIN 11.6 GM/dL (10.7-15.3); MEAN PLT VOLUME 8.2 fl (7.5-11.1)
[2018-08-21 01:28] LABS: BASO % 0.5 % (0-2.0); HEMATOCRIT 36.4 % (32.4-45.2); LYMPH % 44.7 % (8-40); MCH 23.8 pg (25.7-33.7); MCHC 31.8 g/dl (32.0-36.0); MEAN CELL VOLUME 74.8 fl (80-96); PLATELET COUNT 198 K/MM3 (134-434); RBC 4.87 M/mm3 (3.60-5.2); RDW 14.1 % (11.6-15.6)
--- NOTE | 2018-08-21 01:33 | PDOC ---
Documentation entered by Adonay Melchor SCRIBE, acting as scribe for Jaime Roach MD. Jaime Roach MD: This documentation has been prepared by the hernaneRuiz Elijah, SCRIBE, under my direction and personally reviewed by me in its entirety. I confirm that the documentation accurately reflects all work, treatment, procedures, and medical decision making performed by me. Attending Attestation - Resident Resident Name: Nikita Munson - ED Attending Attestation I have performed the following: I have examined & evaluated the patient, The case was reviewed & discussed with the resident, I agree w/resident's findings & plan, Exceptions are as noted - HPI HPI: 08/20/18 22:32 The patient is a 43 year old female, with a significant PMH of substance abuse ( marijuana and nicotine), asthma, HTN, hyperthyroidism/thyroid cancer, insulin dependent diabetes mellitus with humalog and metformin, CVA in , theodoreyagaya who presents to the emergency department with an episode of syncope. The patient was walking today, began to feel lightheaded and fuzzy, felt everything becoming dark, and when she turned she syncopized. It was witnesed by bystanders. Pt denies any preceding cp, headache, dizziness, visoin changes, n/v, palpitations, abd pain, bcak pain, diarrhea, melena, bpr, sob/vega, cough, hemoptysis, leg swelling, fever/chills cough. The patient hit her head and lost consciousness for about a minute or so without urinary or bowel incontinence, or tongue biting. The patient since has had a headache, prompting her visit to the ED. Denies chest pain, shortness of breath, back pain, abdominal pain, fever, chills , numbness, tingling. Allergies: Hydromorphone HCL PCP: Dr. Saeed - Physicial Exam PE: 08/21/18 01:27 GENERAL: The patient is awake, alert, and fully oriented, Nontoxic - in no acute distress. HEAD: Normocephalic, mild tenderness to palpation on the left scalp without evidence of step-offs, ecchymosis, crepitus on palpation EYES: extraocular movements intact, sclera anicteric, conjunctiva clear. ENT: Normal voice, Moist mucous membranes. NECK: Normal range of motion, supple, no focal midline tenderness in the cervical, thoracic or lumbar spine LUNGS: Breath sounds equal, clear to auscultation bilaterally. No wheezes, no rhonchi, no rales. HEART: Regular rate and rhythm, normal S1 and S2 without murmur, rub or gallop. ABDOMEN: Soft, nontender, No guarding, no rebound. . No CVA tenderness EXTREMITIES: Normal range of motion, NEUROLOGICAL: No facial assymetry, mild word finding difficulty, moving all 4 extremities spontaneously and symmetrically PSYCH: Normal mood, normal affect. SKIN: Warm, Dry, normal turgor, - Medical Decision Making 08/20/18 22:22 [id number] hx of substance abuse (marijuana and nicotine), asthma, HTN, hyperthyroidism/thyroid ca, IDDM, Martinez martinez, presents with witnessed syncopal episode exam noted for mild ttp to L scalp, otherwise normal exam ddx - syncope - anemia, metabolic derangement, arrythmia, acs will ck labs night monitor anticipate observatoin for syncope Heart Score/ECG Review - ECG Impressions Comment:: 08/21/18 01:28 Twelve-lead EKG was performed and reviewed by me. There is normal sinus rhythm with a normal rate. Rate of 94 The axis is normal. QTc interval of [address] changes suggestive of acute ischemia
[2018-08-21 02:06] LABS: ALBUMIN 3.2 g/dl (3.4-5.0); BILIRUBIN,TOTAL 0.5 mg/dL (0.2-1); CALCIUM 9.3 mg/dL (8.5-10.1); CREATININE 0.3 mg/dL (0.55-1.3); POTASSIUM 4.1 mmol/L (3.5-5.1); TOT PROT 7.5 g/dl (6.4-8.2)
--- NOTE | 2018-08-21 02:42 | PN ---
Teaching Attending Note Name of Resident: Corazon Sal ATTENDING PHYSICIAN STATEMENT I saw and evaluated the patient. I reviewed the resident's note and discussed the case with the resident. I agree with the resident's findings and plan as documented. SUBJECTIVE: Patient is a 43 year old woman with a PMH of HTN, HLD, IDDM, CVAs (with residual right hemiparesis), ?Thyroid CA, Kidney stone, Marijuana use, hyperthyroidism, thyroid carcinoma, Asthma, Tobacco use and Moyamoya disease who presents after a syncope. Patient has a variation of accounts of where she passed out - told me it was in the parking lot of the grocery store. But [facility] staff that she was walking out of her house when she experienced lightheadedness and tunnel vision just prior to "passing out". She states that she lost consciousness for a minute or two with noted head trauma. She notes headache after the syncopal episode. She notes that the last time she had a syncopal episode it was in 2016 and due to a stroke. Has never had DKA and uses a cane. LMP was August 15, 2018. She otherwise denies fevers, chills, SOB, chest pain, back pain, nausea, vomiting, abdominal pain, numbness, tingling, weakness , or changes with urination or bowel movements. OBJECTIVE: Alert, not orthostatic Vital Signs Period Temp Pulse Resp BP Sys/Hernandez Pulse Ox Last 24 Hr 98.3 F 96 18 133/84 100 HEENT: No Jaundice, eye redness or discharge, PERRLA, EOMI. Normocephalic, atraumatic. No lump or laceration on her scalp. External ears are normal and hearing is grossly intact. No nasal discharge. Neck: Supple, nontender. Right carotid bruit. No palpable adenopathy or thyromegaly. No JVD Chest: Good effort. Clear to auscultation and percussion. Heart: Regular. No S3, rub or murmur Abdomen: Not distended, soft, nontender and no HSM. No rebound or guarding. Normal bowel sounds. Ext: Peripheral pulses intact. No leg edema. Skin: Warm and dry. No petechiae, rash or ecchymosis. Neuro: Alert. Oriented x3. CN 2-12 grossly intact. Sensation grossly intact in all four extremities; right hemiparesis. Psych: Withdrawn and sad. Appropriate affect. Good insight, but poor judgement. Home Medications Medication Instructions Recorded Atorvastatin Ca [Lipitor] 10 mg PO HS 06/02/18 Insulin Glargine,Hum.rec.anlog 20 units SQ HS 06/02/18 [Lantus Solostar PEN -] Methimazole [Tapazole -] 5 mg PO DAILY 06/02/18 Nifedipine [Procardia Xl] 60 mg PO DAILY 06/02/18 metFORMIN HCL [Metformin HCl] 500 mg PO BID 06/02/18 Acetaminophen [Tylenol -] 500 mg PO Q6H #30 tablet 06/05/18 Aspirin [Adult Aspirin Regimen] 81 mg PO DAILY #30 tablet. 06/05/18 Cefuroxime Axetil [Ceftin -] 500 mg PO Q12H #20 tablet 06/05/18 Insulin Sliding Scale [Novolog See Protocol SQ TIDAC #1 pen 06/05/18 Vial Sliding Scale -] Abnormal Lab Results 08/21/18 08/21/18 00:56 01:25 MCV 74.8 L MCH 23.8 L MCHC 31.8 L Lymphocytes % 44.7 H D Anion Gap 7 L Creatinine 0.3 L Random Glucose 196 H Albumin 3.2 L ASSESSMENT AND PLAN: 1. Syncope - Says she hit the right side of her head when she fell down. No acute abnormality on head CT scan. CXR and urinalysis pending. Unclear if syncope is related to her Moyamoya disease. EKG is NSR with prolonged QT and no significant ST-T wave changes. Troponin is pending. Will monitor on telemetry, get carotid doppler, get fasting lipids, ECHO, intensify statin therapy and consult neurology about need for brain MRI and EEG. 2. Hypoalbuminemia - Possibly due to combined effects of malnutrition and inflammation associated with comorbid chronic conditions. Will ensure adequate dietary protein intake and also consult telephone solicitor. Urinalysis pending. 3. Uncontrolled DM For now, we will hold the home diabetes drugs and implement sliding scale insulin regimen. Provide comprehensive diabetes care with patient teaching and counseling about the importance of adherence to prescribed diabetes regimen, euglycemia, eye care and foot care. 4. Tobacco Use Counseled on risks associated with tobacco use. We will provide patient all the necessary assistance to facilitate smoking cessation and prescribe Nicotine patch. 5. Hypertension - Will practice permissive hypertension for at least 24 hours. She has no ACEI/ARB on her medication list. Will restart suitable outpatient antihypertensive drugs when clinically appropriate. Revise regimen to include an ACEI and placed on a regimen to ensure good 24 hour BP control. Nonpharmacologic measures to control hypertension like weight loss, salt restriction and exercise discussed. 6. DVT prophylaxis - Lovenox 40 mg SQ q 24 hours. 7. Advance directives - Full code
--- NOTE | 2018-08-21 04:07 | HP ---
CHIEF COMPLAINT: syncope PCP: Dr. Saeed HISTORY OF PRESENT ILLNESS: Pt. is a 43 y.o. F w/ PMHx. of IDDM, HTN, CVA x 2 (2 /2 Moyamoya w/ R. sided residual weakness), Hyperthyroidism (Grave's Disease), HLD, and Multiple UTIs (Pyelo x 2) presents after a syncopal episode yesterday evening. Pt. is a poor historian and gives varying accounts of the events. Pt. was en route to home or grocery store when she started to feel lightheaded and dizzy just before falling to the ground hitting her head and losing consciousness for "30 seconds." Pt. states that before her fall her hands were shaking. Pt. denies biting her tongue, losing control of her bowels or bladder. Pt. endorses remembering the events right before and right afterwards. Pt. denies any chest pain, shortness of breath, fevers, chills, current nausea, vomiting, diarrhea, constipation, dysuria, polyuria or any other symptoms. Pt. states that she was supposed to have a surgery on September 11 to correct the anatomical defect in her internal carotid arteries however because of her uncontrolled DM and uncontrolled Grave's Disease, the operation had to be postponed. Pt. states that she is going to go home tomorrow morning because "there is nothing that we can do for her" as she "already had 2 strokes." Pt. states she only came to the ED because her mother and son forced her to. ER course was notable for: (1) EKG, Head CT, Telemetry (2) CBC, PT/INR, Ofirmev (3) Recent Travel: No PAST MEDICAL HISTORY: As above PAST SURGICAL HISTORY: x 9, Umbilical Hernia Repair x 2 Social History: Smoking: Quit 3 weeks ago (on Chantix?) Smoked 1/2 PPD for 31 years Alcohol: Denies Drugs: Denies but per chart review smokes marijuana daily Family History: Grand mother- Colon [place], DM; Grand father- Pancreatic CA; Mother- DM Allergies hydromorphone HCl [From Dilaudid] Allergy (Verified 08/20/18 20:58) PALPITATION Medications need to be renconciled. [facility]. [facility]. HOME MEDICATIONS: Home Medications Medication Instructions Recorded Atorvastatin Ca [Lipitor] 10 mg PO HS 06/02/18 Insulin Glargine,Hum.rec.anlog 20 units SQ HS 06/02/18 [Lantus Solostar PEN -] Methimazole [Tapazole -] 5 mg PO DAILY 06/02/18 Nifedipine [Procardia Xl] 60 mg PO DAILY 06/02/18 metFORMIN HCL [Metformin HCl] 500 mg PO BID 06/02/18 Acetaminophen [Tylenol -] 500 mg PO Q6H #30 tablet 06/05/18 Aspirin [Adult Aspirin Regimen] 81 mg PO DAILY #30 tablet. 06/05/18 Cefuroxime Axetil [Ceftin -] 500 mg PO Q12H #20 tablet 06/05/18 Insulin Sliding Scale [Novolog See Protocol SQ TIDAC #1 pen 06/05/18 Vial Sliding Scale -] REVIEW OF SYSTEMS As above PHYSICAL EXAMINATION Vital Signs - 24 hr 08/20/18 20:56 Temperature 98.3 F Pulse Rate 96 H Respiratory 18 Rate Blood Pressure 133/84 O2 Sat by Pulse 100 Oximetry (%) GENERAL: Awake, alert, and fully oriented, mildly agitated HEAD: Normal with no signs of trauma. EYES: Pupils equal, round and reactive to light, extraocular movements intact, sclera anicteric, conjunctiva clear. EARS, NOSE, THROAT: Ears normal, nares patent, oropharynx clear without exudates. Moist mucous membranes. NECK: Normal range of motion, supple without lymphadenopathy, JVD. Goiter present. Right carotid bruit. LUNGS: Breath sounds equal, clear to auscultation bilaterally. No wheezes, and no crackles. No accessory muscle use. HEART: Regular rate and rhythm, normal S1 and S2 without murmur. ABDOMEN: Soft, nontender, not distended, normoactive bowel sounds, no guarding, no rebound. MUSCULOSKELETAL: Normal range of motion at all joints. No bony deformities or tenderness. No CVA tenderness. UPPER EXTREMITIES: 2+ radial pulses, warm, well-perfused. No cyanosis. No edema noted LOWER EXTREMITIES:Warm, well-perfused. No calf tenderness. No edema NEUROLOGICAL: Pt. has right sided facial droop when smiling, and 4/5 residual right sided weakness. No numbness. Gait not assessed as Pt. not comfortable walking without her cane. PSYCHIATRIC: Poor insight. Agitated SKIN: Warm, dry, normal turgor. Laboratory Results - last 24 hr 08/20/18 08/20/18 08/21/18 23:45 23:45 00:56 WBC 7.0 RBC 4.87 Hgb 11.6 Hct 36.4 MCV 74.8 L MCH 23.8 L MCHC 31.8 L RDW 14.1 Plt Count 198 MPV 8.2 Absolute Neuts (auto) 3.1 Neutrophils % 44.0 Lymphocytes % 44.7 H D Monocytes % 10.0 Eosinophils % 0.8 Basophils % 0.5 Nucleated RBC % 0 Sodium Cancelled Potassium Cancelled Chloride Cancelled Carbon Dioxide Cancelled Anion Gap Cancelled BUN Cancelled Creatinine Cancelled Est GFR (CKD-EPI)AfAm Cancelled Est GFR (CKD-EPI)NonAf Cancelled Random Glucose Cancelled Calcium Cancelled Total Bilirubin Cancelled AST Cancelled ALT Cancelled Alkaline Phosphatase Cancelled Creatine Kinase Cancelled Troponin I Cancelled Total Protein Cancelled Albumin Cancelled TSH Cancelled Serum , Qual Negative 08/21/18 01:25 WBC RBC Hgb Hct MCV MCH MCHC RDW Plt Count MPV Absolute Neuts (auto) Neutrophils % Lymphocytes % Monocytes % Eosinophils % Basophils % Nucleated RBC % Sodium 138 Potassium 4.1 Chloride 104 Carbon Dioxide 28 Anion Gap 7 L BUN 7.0 Creatinine 0.3 L Est GFR (CKD-EPI)AfAm 163.68 Est GFR (CKD-EPI)NonAf 141.22 Random Glucose 196 H Calcium 9.3 Total Bilirubin 0.5 AST 36 ALT 51 Alkaline Phosphatase 110 Creatine Kinase Troponin I Total Protein 7.5 Albumin 3.2 L TSH Serum , Qual ASSESSMENT/PLAN: Pt. is a 43 y.o. F w/ PMHx. of IDDM, HTN, CVA x 2 (2/2 Moyamoya w/ R. sided residual weakness), Hyperthyroidism (Grave's Disease), HLD, and Multiple UTIs ( Pyelo x 2) presents afger a syncopal episode yesterday evening. #Syncope Head CT: Negative for acute pathology, non-acute left temporal infarct w/ ex vacuo dilatation of left frontal horn, old small vessel infarct in right caudate head, very small infarct(non-acute) in high right frontal lobe, no obvious acute infarct, no hemorrhage, no mass--> f/u official read in AM Neuro Consult (Dr. Obregon) appreciated--> f/u if Pt. would benefit from MRI/ MRA in AM Echo(2013) E/A reversal, trace to mild MR + TR, EF 82%? f/u repeat Echo f/u Carotid Doppler f/u orthostatic vital signs f/u Troponin f/u CXR EKG: NSR, QTc: 492, TWI in V1, p-wave inversion in V2, f/u UTox #Hyperthyroidism 2/2 Grave's Disease Pt. denies ever being diagnosed with Thyroid Cancer, however states she did receive radiation to her neck in the past f/u records from her PCP in AM c/w Methimazole 10mg (Pt. states it was recently increased from her last hospital visit here) f/u TSH, free T4 and T3. #IDDM Pt. states her last A1c was ~9% f/u AIc hold oral medications ACHS BGM ACHS ISS #Preventitive Care consider [employer] consult for tubal ligation given Hx. of 9 C-sections. Pt. is currently on disability and has had 10+ abdominal surgeries vastly increasing her risk for abdominal complications in the future. Pt. states last LMP was August 14 and was normal. Pt. had a normal Pap Smear within the last year and last saw her [employer] in Mar. Pt. endorses having 6 kids. #FEN no IVF, encourage PO intake monitor electrolytes and replete as needed Diabetic/Na restricted diet #DVT Ppx. Lovenox 40mg SQ Visit type - Emergency Visit Emergency Visit: Yes ED Registration Date: 08/21/18 Care time: The patient presented to the Emergency Department on the above date and was hospitalized for further evaluation of their emergent condition. - New Patient This patient is new to me today: Yes Date on this admission: 08/21/18 - Critical Care Critical Care patient: No
[2018-08-21] MEDS ORDERED: HEPARIN NA (PORCINE) 5,000 UNITS/ML 1ML VIAL SQ SCH (06:00)
[2018-08-21 07:27] LABS: HEMOGLOBIN 11.1 GM/dL (10.7-15.3); MCH 23.8 pg (25.7-33.7); MCHC 31.8 g/dl (32.0-36.0); MEAN PLT VOLUME 8.3 fl (7.5-11.1); PLATELET COUNT 196 K/MM3 (134-434); RBC 4.67 M/mm3 (3.60-5.2); WHITE BLOOD COUNT 5.7 K/mm3 (4.0-10.0)
[2018-08-21 07:29] LABS: INR 1.19 (0.83-1.09); PROTHROMBIN TIME (PATIENT) 14.1 SEC (9.7-13.0)
[2018-08-21 07:31] LABS: BLOOD UREA NITROGEN 7.6 mg/dL (7-18); CALCIUM 9.1 mg/dL (8.5-10.1); CREATININE 0.4 mg/dL (0.55-1.3); MAGNESIUM 1.8 mg/dL (1.8-2.4); PHOSPHOROUS 5.2 mg/dL (2.5-4.9); POTASSIUM 3.3 mmol/L (3.5-5.1)
[2018-08-21] MEDS: INSULIN SLIDING SCALE (NOVOLOG) 1 VIAL SQ SCH ×3 (07:39→17:41)
[2018-08-21] MEDS ORDERED: INSULIN (NOVOLOG) ASPART 100 UNITS/ML 10ML VIAL ONE ×4 (07:40→23:45)
[2018-08-21] MEDS ORDERED: POTASSIUM CHLORIDE TABS 20 MEQ TABLET.ER (FP) PO ONE ×2 (09:00→09:54)
[2018-08-21] MEDS: ENOXAPARIN NA (PORCINE) 40 MG/0.4 ML DISP.SYRIN SQ SCH (09:58)
[2018-08-21] MEDS ORDERED: METHIMAZOLE 10 MG TABLET (FP) PO SCH (10:00)
--- NOTE | 2018-08-21 10:04 | ECHO ---
Version: 1 Name: FAIZAN DOWNS Exam: Adult Echocardiogram Study Date: 08/21/2018, 8:34 AM Age: 43 Years MMode/2D Measurements & Calculations IVSd: 1.42 cm LVIDs: 2.7 cm LVIDd: 3.7 cm LVPWd: 1.17 cm ACS: 1.98 cm LVOT diam: 1.97 cm Doppler Measurements & Calculations MV E max rashaad: 63.1 cm/sec Med E/e': 7.1 MV A max rashaad: 82.3 cm/sec Med Peak E' Rashaad: 8.8 cm/sec MV E/A: 0.77 Lat E/e': 4.4 Lat Peak E' Rashaad: 14.3 cm/sec Ao max P.8 mmHg CARMENCITA(I,D): 2.07 cm Ao mean P.2 mmHg LV V1 mean: 70.0 cm/sec Ao V2 max: 228.0 cm/sec LV V1 mean P.13 mmHg Left Ventricle The left ventricular size, thickness and function are normal. Abnormal diastolic compliance. Right Ventricle The right ventricle is normal in size and function. Atria Normal left and right atrial size and function. Mitral Valve The mitral valve is normal. There is trace mitral regurgitation. Tricuspid Valve The tricuspid valve is normal. There is trace tricuspid regurgitation. Aortic Valve The aortic valve is normal in structure and function. Pulmonic Valve The pulmonic valve is not well seen, but is grossly normal. Great Vessels The aortic root is not well visualized. Pericardium/Pleura There is no pericardial effusion. Summary Statements The left ventricular size, thickness and function are normal The right ventricle is normal in size and function. Normal left and right atrial size and function. The mitral valve is normal. The tricuspid valve is normal. The aortic valve is normal in structure and function. Abnormal diastolic compliance EF 53% MD Nikita García 08/21/2018, 9:03 AM Ordering Physician: KEYANA FROST Performed By: Carol Gregg
--- NOTE | 2018-08-21 10:34 | EKG ---
Test Reason : Blood Pressure : / mmHG Vent. Rate : 094 BPM Atrial Rate : 094 BPM P-R Int : 146 ms QRS Dur : 080 ms QT Int : 394 ms P-R-T Axes : 059 019 044 degrees QTc Int : 492 ms NORMAL SINUS RHYTHM POSSIBLE LEFT ATRIAL ENLARGEMENT PROLONGED QT ABNORMAL ECG WHEN COMPARED WITH ECG OF 02-JUN-2018 08:26, NO SIGNIFICANT CHANGE WAS FOUND Confirmed by Adonay Tierney MD ([id number]) on 08/21/2018 10:34:40 AM Referred By: Confirmed By:Adonay Tierney MD
--- NOTE | 2018-08-21 14:06 | PN ---
Physical Exam: SUBJECTIVE: Patient seen this morning and reports she currently has no complaints. OBJECTIVE: Vital Signs Temperature 98.8 F 08/21/18 11:35 Pulse Rate 94 H 08/21/18 11:35 Respiratory Rate 18 08/21/18 11:35 Blood Pressure 129/88 08/21/18 11:35 O2 Sat by Pulse Oximetry (%) 95 08/21/18 11:35 GENERAL: The patient is awake, alert, and fully oriented, in no acute distress. HEAD: Normal with no signs of trauma. EYES: PERRL, extraocular movements NECK: R sided goiter LUNGS: Breath sounds equal, clear to auscultation bilaterally HEART: Regular rate and rhythm, S1, S2 without murmur, rub or gallop. ABDOMEN: Soft, nontender, nondistended, normoactive bowel sounds EXTREMITIES: 2+ pulses, warm, well-perfused, no edema. NEUROLOGICAL: Cranial nerves II through XII grossly intact. Normal speech, normal gait, sensation intact and the same diffusely, 5/5 strength upper and lower extremities, R arm and leg weaker then the left, patients baseline PSYCH: Normal mood, normal affect. SKIN: Warm, dry, normal turgor, no rashes or lesions noted CBC, BMP 08/21/18 06:44 08/21/18 06:45 Active Medications Aspirin (Ecotrin -) 81 mg PO DAILY [facility] Atorvastatin Calcium (Lipitor -) 10 mg PO HS [facility] Enoxaparin Sodium (Lovenox -) 40 mg SQ DAILY [facility] Last Admin: 08/21/18 09:58 Dose: 40 mg Insulin Aspart (Novolog Vial Sliding Scale -) 1 vial SQ [facility]; Protocol Last Admin: 08/21/18 13:43 Dose: 4 unit Methimazole (Tapazole -) 10 mg PO DAILY [facility] Last Admin: 08/21/18 09:58 Dose: 10 mg Nifedipine (Procardia Xl -) 60 mg PO DAILY [facility] Non-Formulary Medication (Insulin Glargine,Hum.Rec.Anlog) 18 units SQ HS [facility] ASSESSMENT/PLAN: Patient is a 43 y/o female with a history of IDDM, CVA x3, Moyamoya, Graves disease, HLD who presents for syncope. #Syncope - 2/2 likely to low blood flow brain from Moyamoya, cannot r/o new stroke, - spoke with Neuro service of patient, patient has appointment for tomorrow for surgical workup, last CT head with perfusion was in march, MRI of head in September 2017 - carotid doppler: moderate size plaque at the right common carotid bifurcation approximately 6 mm without evidence of hemodynamicaly significant stenosis bilterally - echo: left ventricular size, thickness and function are normal, RV normal in size and function EF 53% - f/u with Dr. Obregon for any further imagining needed #IDDM - A1C 9.2 - levemir 18 - SS #Graves disease - methimazole 10 po daily - TSH 0.1, T3 51.1 - consutled Dr Sheldon - unable to get in contact with patients shopping investigator, Dr. Alejandro -- * was able to get in contact with endo, last T3 53, on methimazole 10 daily #HTN - nifedipine 60 mg daily #hx CVA - continue aspirin 81 mg daily - atorvastatin 10 mg po hs #DVT ppx - lovenox 40 daily FEN - Diabetic diet - repleted K, continue to monitor Dispo: monitor, speak with neuro and endocrine - Neuro: Marco Antonio [phone] Visit type - Emergency Visit Emergency Visit: No - New Patient This patient is new to me today: No - Critical Care Critical Care patient: No
--- NOTE | 2018-08-21 16:11 | CONSULT ---
Consult Consult Specialty:: Endocrinology Referred by:: Ivett Manjarrez Reason for Consultation:: Hyperthyroidism - History of Present Illness Chief Complaint: Syncope History of Present Illness: This is a 43 year old female with a history of HTN, HLD, T2DM since age 25 , on Insulin since then , CVAs, Hyperthyroidism on Methimazole since 2012, Noamyanoamya who presents for evaluation for syncope. The patient reports that she was walking out of her house when she experienced lightheadedness and tunnel vision just prior to "passing out". She states that she lost consciousness for a minute or two with noted head trauma. She notes headache after the syncopal episode. She notes that the last time she had a syncopal episode it was in 2016 and due to a stroke. She otherwise denies fevers, chills, SOB, chest pain , back pain, nausea, vomiting, abdominal pain, numbness, tingling, weakness, or changes with urination or bowel movements. Pt referred for management of hyperthyroidism. Was on Methimazole 5mg daily from 2012 until 6 months ago when the dose was increased to 10mg daily. 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 Cardio/Vascular: Yes: HTN, Hyperlipdemia, Mitral Insufficiency (DM) ...LMP: 05/04/18 Psych: Yes: Anxiety, Depression Endocrine: Yes: Diabetes Mellitus (diat control), Hyperthyroidism - Alcohol/Substance Use Hx Alcohol Use: Yes History of Substance Use: reports: Marijuana - Smoking History Smoking history: Current some day smoker Have you smoked in the past 12 months: Yes Aproximately how many cigarettes per day: 2 If you are a former smoker, when did you quit?: 02/07 - Social History ADL: Independent History of Recent Travel: No Home Medications - Allergies Allergies/Adverse Reactions: Allergies Allergy/AdvReac Type Severity Reaction Status Date / Time hydromorphone HCl Allergy PALPITATION Verified 08/20/18 20:58 [From Dilaudid] - Home Medications Home Medications: Ambulatory Orders Atorvastatin Ca [Lipitor] 10 mg PO HS 06/02/18 Insulin Glargine,Hum.rec.anlog [Lantus Solostar PEN -] 18 units SQ HS 06/02/18 Methimazole [Tapazole -] 10 mg PO DAILY 06/02/18 Nifedipine [Procardia Xl] 60 mg PO DAILY 06/02/18 metFORMIN HCL [Metformin HCl] 500 mg PO BID 06/02/18 Acetaminophen [Tylenol -] 500 mg PO Q6H #30 tablet 06/05/18 Aspirin [Adult Aspirin Regimen] 81 mg PO DAILY #30 tablet. 06/05/18 Insulin Sliding Scale [Novolog Vial Sliding Scale -] See Protocol SQ TIDAC #1 pen 06/05/18 Glipizide 5 mg PO BID 08/21/18 Family Disease History - Family Disease History Family Disease History: Other: Father (htn) Review of Systems - Review of Systems Constitutional: reports: No Symptoms Eyes: reports: No Symptoms HENT: reports: No Symptoms Neck: reports: No Symptoms Cardiovascular: reports: No Symptoms Respiratory: reports: No Symptoms Gastrointestinal: reports: No Symptoms Genitourinary: reports: No Symptoms Musculoskeletal: reports: No Symptoms Neurological: reports: No Symptoms Endocrine: reports: No Symptoms Physical Exam Vital Signs: Vital Signs Temperature 98.8 F 08/21/18 11:35 Pulse Rate 94 H 08/21/18 11:35 Respiratory Rate 18 08/21/18 11:35 Blood Pressure 129/88 08/21/18 11:35 O2 Sat by Pulse Oximetry (%) 95 08/21/18 11:35 Constitutional: Yes: No Distress, Calm Eyes: Yes: Conjunctiva Clear, EOM Intact HENT: Yes: Atraumatic, Normocephalic Neck: Yes: Supple, Trachea Midline, Other (No bruit) Cardiovascular: Yes: Regular Rate and Rhythm Respiratory: Yes: Regular, CTA Bilaterally Gastrointestinal: Yes: Normal Bowel Sounds, Soft Musculoskeletal: Yes: WNL Extremities: Yes: WNL Edema: No Neurological: Yes: Alert, Oriented Labs: CBC, BMP 08/21/18 06:44 08/21/18 06:45 Assessment/Plan AP: Syncope HYperthyroidism T2DM Uncontrolled Continue Methimazole 10mg daily for now Labs for FT4, FT3 and TSI Will adjust dose as necessary once results are available
--- NOTE | 2018-08-21 16:16 | PN ---
Teaching Attending Note Name of Resident: Ivett Manjarrez ATTENDING PHYSICIAN STATEMENT I saw and evaluated the patient. I reviewed the resident's note and discussed the case with the resident. I agree with the resident's findings and plan as documented. SUBJECTIVE:states she is feeling well today. no prodrome of symptoms prior to the event. been having syncopal episodes every month. has appt on September 10 for surgery for myoma. has been followed closely with neurologist with recent brain MRI and CTA in preparation of the surgery. denies Cp, SOB, fever, chills, PAVON, N/ V/C/D states she is compliant with medications. 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 + goiter CV S1 S2 RRR no murmur/rub/gallop Lungs CTA B/L no wheezing/rales/rhonchi Neuro CN II-XII grossly intact, 3/5 strength RUE/RLE. sensation grossly intact. negative dysmetira no pronator drift. gait testing deferred ASSESSMENT AND PLAN: 43yo F with PMH HTN, dyslipidemia, IDDM, CVAs (with residual right hemiparesis) , Kidney stone, Marijuana use, hyperthyroidism, thyroid carcinoma s/p radiation , Asthma, Tobacco use and Moyamoya disease presented to the ER wtih syncope 1. Syncope- liekly related to moyamoya disease. echo and carotid doppler pending. will place call out to neurologist to determine if any other brain imaging is necessary as patient had recent imaging as outpatient and is scheduled for surgery in 3 weeks. will check orthostatics. no signs of infection. FS was 217 when EMS arrived. danielle here been consulted 2. Elevated T3- states she had thyroid panel checked last week and wallpaper printer was satisfied with lab results and was not informed to adjust medication. will reach out to endo to see what values they had and if medications need adjusting 4. DM- uncontrolled. A1c pending. hold oral agents. cont levemir. bgm and iss 5. CVA- with residual R hemiparesis. states she is at baseline. on asa/statin 6. hypokalemia- kcl po 7. DVT ppx- lovenox
--- NOTE | 2018-08-21 19:39 | CON.NEURO ---
Consult Consult Specialty:: Mindi Referred by:: ER Reason for Consultation:: Syncopy - History of Present Illness History of Present Illness: 43-year-old right-handed female patient with present medical history significant for significant PMH of substance abuse (marijuana and nicotine), asthma, HTN, hyperthyroidism/thyroid cancer, insulin dependent diabetes mellitus with humalog and metformin, CVA in , otilia who presents to the emergency department with an episode of syncope. Presents to the hospital with syncopal episode according to the patient she was walking when she felt dizzy and she felt everything became dark and around her no report of any seizure-like activity in her chest pain before or after patient came into the emergency room CAT scan of the head revealed no evidence of acute pathology with area of encephalomalacia since admission to the emergency room patient with no recurrence of her symptoms no seizure-like activity feels tired patient was seen in the emergency room. - History Source History Provided By: Patient - Past Medical History PROCESS TRAINER: Yes: CVA Cardio/Vascular: Yes: HTN, Hyperlipdemia, Mitral Insufficiency (DM) ...LMP: 05/04/18 Psych: Yes: Anxiety, Depression Endocrine: Yes: Diabetes Mellitus (diat control), Hyperthyroidism - Alcohol/Substance Use Hx Alcohol Use: Yes History of Substance Use: reports: Marijuana - Smoking History Smoking history: Current some day smoker Have you smoked in the past 12 months: Yes Aproximately how many cigarettes per day: 2 If you are a former smoker, when did you quit?: 02/07 - Social History ADL: Independent History of Recent Travel: No Home Medications - Allergies Allergies/Adverse Reactions: Allergies Allergy/AdvReac Type Severity Reaction Status Date / Time hydromorphone HCl Allergy PALPITATION Verified 08/20/18 20:58 [From Dilaudid] - Home Medications Home Medications: Ambulatory Orders Atorvastatin Ca [Lipitor] 10 mg PO HS 06/02/18 Insulin Glargine,Hum.rec.anlog [Lantus Solostar PEN -] 18 units SQ HS 06/02/18 Methimazole [Tapazole -] 10 mg PO DAILY 06/02/18 Nifedipine [Procardia Xl] 60 mg PO DAILY 06/02/18 metFORMIN HCL [Metformin HCl] 500 mg PO BID 06/02/18 Acetaminophen [Tylenol -] 500 mg PO Q6H #30 tablet 06/05/18 Aspirin [Adult Aspirin Regimen] 81 mg PO DAILY #30 tablet. 06/05/18 Insulin Sliding Scale [Novolog Vial Sliding Scale -] See Protocol SQ TIDAC #1 pen 06/05/18 Glipizide 5 mg PO BID 08/21/18 Family Disease History - Family Disease History Family History: Denies Family Disease History: Other: Father (htn) Review of Systems - Review of Systems Constitutional: reports: No Symptoms Eyes: reports: No Symptoms Neurological: reports: Headache, Incoordination, Numbness, Parasthesia Physical Exam-Neuro Vital Signs: Vital Signs Temperature 99.0 F 08/21/18 17:51 Pulse Rate 85 08/21/18 17:51 Respiratory Rate 10 08/21/18 17:51 Blood Pressure 125/57 L 08/21/18 17:51 O2 Sat by Pulse Oximetry (%) 100 08/21/18 17:51 Constitutional: Yes: Well Nourished Neck: Yes: WNL Labs: CBC, BMP 08/21/18 06:44 08/21/18 06:45 INR, PTT INR 1.19 (0.83-1.09) H 08/21/18 06:45 - Neuro Exam Level Of Consciousness: Yes: Oriented to Person, Oriented to Place, Oriented to Time Eyes: Yes: PERRLA Speech: WNL Dominant Hand: Right Cranial Nerves II-XII Intact: Yes Gag: Present DTR's: 0 Right Tricep, 0 Left Brachioradialis, 1+ Left Bicep, 1+ Right Bicep Babinski: Absent Response to light touch: Abnormal Response to pain prick: Abnormal Response to temperature: Abnormal Response to vibration: Abnormal Motor Strength: 3/5: Left Arm, Right Arm, Left Leg, Right Leg Imaging - Results Cat Scan: Image Reviewed Problem List - Problems (1) Syncope and collapse Assessment/Plan: syncope in the presence of a history of moyamoya disease Syncope and the presence of a history of diabetes doubt this is seizure-like activity Rule out cardiac arrhythmia 1. seizure precautions. 2. EEG. 3. CT angiogram of the head and neck. 4. Follow-up with endocrine specialist. 5. C-peptide Thank you Code(s): R55 - SYNCOPE AND COLLAPSE
[2018-08-21] MEDS ORDERED: INSULIN (LEVEMIR) 100 UNITS/ML UNITS SQ SCH (22:00)
[2018-08-21] MEDS ORDERED: ATORVASTATIN CA 10 MG TABLET (FP) PO SCH (22:00)
[2018-08-21] MEDS ORDERED: INSULIN (LEVEMIR) 100 UNITS/ML UNITS SQ ONE ×2 (23:44→23:49)
[2018-08-21] MEDS ORDERED: ATORVASTATIN CA 10 MG TABLET (FP) ONE (23:45)
[2018-08-22] MEDS: INSULIN SLIDING SCALE (NOVOLOG) 1 VIAL SQ SCH ×3 (00:26→11:25)
[2018-08-22 02:48] VITALS: BMI 28.6
[2018-08-22 07:55] LABS: ALBUMIN 2.8 g/dl (3.4-5.0); BILIRUBIN,TOTAL 0.8 mg/dL (0.2-1); BLOOD UREA NITROGEN 8.7 mg/dL (7-18); CALCIUM 9.1 mg/dL (8.5-10.1); CREATININE 0.3 mg/dL (0.55-1.3); POTASSIUM 3.6 mmol/L (3.5-5.1); TOT PROT 6.6 g/dl (6.4-8.2)
--- NOTE | 2018-08-22 08:55 | PN ---
Progress Note (short form) - Note Progress Note: Denies any complaints No palpitations Vital Signs Period Temp Pulse Resp BP Sys/Hernandez Pulse Ox Last 24 Hr 98.1 F-99.0 F 76-94 10-20 125-147/57-88 95-100 PE: AOx3 Neck: Supple, No JVD, No Bruit HEENT: EOMi Lungs: CTA CVS: S1S2 Abd: Benign Ext: No edema CMP Sodium 143 mmol/L (136-145) 08/22/18 06:40 Potassium 3.6 mmol/L (3.5-5.1) 08/22/18 06:40 Chloride 108 mmol/L (98-107) H 08/22/18 06:40 Carbon Dioxide 30 mmol/L (21-32) 08/22/18 06:40 Anion Gap 5 MMOL/L (8-16) L 08/22/18 06:40 BUN 8.7 mg/dL (7-18) 08/22/18 06:40 Creatinine 0.3 mg/dL (0.55-1.3) L 08/22/18 06:40 Est GFR (CKD-EPI)AfAm 163.68 08/22/18 06:40 Est GFR (CKD-EPI)NonAf 141.22 08/22/18 06:40 POC Glucometer 257 UNITS (80-120) 08/22/18 11:24 Random Glucose 115 mg/dL (74-106) H 08/22/18 06:40 Hemoglobin A1c % 9.2 % (4.2-6.3) H 08/21/18 06:44 Calcium 9.1 mg/dL (8.5-10.1) 08/22/18 06:40 Phosphorus 5.2 mg/dL (2.5-4.9) H 08/21/18 06:45 Magnesium 1.8 mg/dL (1.8-2.4) 08/21/18 06:45 Total Bilirubin 0.8 mg/dL (0.2-1) 08/22/18 06:40 AST 34 U/L (15-37) 08/22/18 06:40 ALT 50 U/L (13-61) 08/22/18 06:40 Alkaline Phosphatase 93 U/L (45-117) 08/22/18 06:40 Creatine Kinase Cancelled 08/20/18 23:45 Troponin I < 0.02 ng/ml (0.00-0.05) 08/21/18 06:45 Total Protein 6.6 g/dl (6.4-8.2) 08/22/18 06:40 Albumin 2.8 g/dl (3.4-5.0) L 08/22/18 06:40 TSH 0.01 uIU/ml (0.358-3.74) L 08/21/18 06:45 Free T4 4.44 ng/dl (0.76-1.46) H 08/22/18 06:40 Resin T3 Uptake 51.1 % (30-39) H* 08/21/18 06:45 Serum , Qual Negative 08/20/18 23:45 Current Medications Generic Name Dose Route Start Last Admin Trade Name Freq PRN Reason Stop Dose Admin Aspirin 81 mg 08/22/18 10:00 08/22/18 09:33 Ecotrin - PO 81 mg DAILY [facility] Administration Atorvastatin Calcium 10 mg 08/21/18 22:00 08/22/18 00:05 Lipitor - PO 10 mg HS [facility] Administration Enoxaparin Sodium 40 mg 08/21/18 10:00 08/22/18 09:32 Lovenox - SQ Not Given DAILY [facility] Insulin Aspart 1 vial 08/21/18 07:00 08/22/18 11:25 Novolog Vial Sliding Scale - SQ 6 unit ACHS [facility] Administration Protocol Insulin Detemir 18 units 08/21/18 22:00 08/22/18 00:05 Levemir Vial SQ 18 units HS [facility] Administration Methimazole 10 mg 08/22/18 09:00 08/22/18 14:06 Tapazole - PO 10 mg TID [facility] Administration Nifedipine 60 mg 08/22/18 10:00 08/22/18 09:32 Procardia Xl - PO 60 mg DAILY [facility] Administration AP: Syncope Hyperthyroidism T2DM: Uncontrolled Pt says she has been taking Methimazole 10mg Daily Increase Methimazole 10mg TID Rpt TFT in one week and adjust dose as necessary
[2018-08-22] MEDS: ENOXAPARIN NA (PORCINE) 40 MG/0.4 ML DISP.SYRIN SQ SCH (09:32)
[2018-08-22] MEDS: METHIMAZOLE 10 MG TABLET (FP) PO SCH ×2 (09:33→14:06)
[2018-08-22] MEDS ORDERED: ASPIRIN COATED 81 MG TABLET.EC PO SCH (10:00)
[2018-08-22] MEDS ORDERED: NIFEdipine E.R 60 MG TABLET (UD) PO SCH (10:00)
[2018-08-22 10:11] LABS: COCAINE, UR NEGATIVE ng/ml (CUTOFF=300); METHADONE, UR NEGATIVE ng/ml (CUTOFF=300); OPIATES, URI NEGATIVE ng/ml (CUTOFF=300); PHENCYCLIDINE,URINE NEGATIVE ng/ml (CUTOFF=25); URINE AMPHETAMINES NEGATIVE ng/ml (CUTOFF=500); URINE BARBITURATES NEGATIVE ng/ml (CUTOFF=200); URINE BENZODIAZEPINES NEGATIVE ng/ml (CUTOFF=200)
--- NOTE | 2018-08-22 10:27 | PN ---
Teaching Attending Note Name of Resident: Ivett Manjarrez ATTENDING PHYSICIAN STATEMENT I saw and evaluated the patient. I reviewed the resident's note and discussed the case with the resident. I agree with the resident's findings and plan as documented. SUBJECTIVE:no repeat episodes. no dizzyness, lightheadedness, LOC, CP, SOB, fever, chills OBJECTIVE: Last Vital Signs Temp Pulse Resp BP Pulse Ox 98.1 F 76 20 131/72 100 08/22/18 06:52 08/22/18 06:52 08/22/18 06:52 08/22/18 06:52 08/22/18 01:19 General NAD speech dysarthric ASSESSMENT AND PLAN: 43yo F with PMH HTN, dyslipidemia, IDDM, CVAs (with residual right hemiparesis) , Kidney stone, Marijuana use, hyperthyroidism, thyroid carcinoma s/p radiation , Asthma, Tobacco use and Moyamoya disease presented to the ER wtih syncope 1. Syncope- liekly related to moyamoya disease. echo and carotid doppler negative. will order CTA head and neck to evaluate. resident spoke with neurologist yesterday who states last imaging was in March will get copies of reports. did not seem concern about events and did not suggest any further workup. had appt with him today which will need to be rescheduled. is scheduled for surgery which pt will NOT be cleared for per her coin teller due to uncontrolled sugars. neuro on baord 2. Elevated T3- values here compared with coin teller. had similar labs last week. suggests no changes at this time 4. DM- uncontrolled. A1c 9. as per pt was 11 several months ago. coin teller suggested no adjustments at this time. 5. CVA- with residual R hemiparesis. states she is at baseline. on asa/statin 6. hypokalemia- resolved 7. DVT ppx- lovenox 8. possible d/c home today pending CTA results. no driving till cleared by neuro
--- NOTE | 2018-08-22 15:35 | DS ---
Physical Exam: SUBJECTIVE: Patient seen this morning and without complaints. No acute events overnight. OBJECTIVE: Vital Signs Temperature 98 F 08/22/18 17:41 Pulse Rate 79 08/22/18 17:41 Respiratory Rate 18 08/22/18 17:41 Blood Pressure 139/75 08/22/18 17:41 O2 Sat by Pulse Oximetry (%) 97 08/22/18 09:00 PHYSICAL EXAM GENERAL: The patient is awake, alert, and fully oriented, in no acute distress. NECK: R sided goiter LUNGS: Breath sounds equal, clear to auscultation bilaterally HEART: Regular rate and rhythm, S1, S2 without murmur, rub or gallop. ABDOMEN: Soft, nontender, nondistended, normoactive bowel sounds EXTREMITIES: 2+ pulses, warm, well-perfused, no edema. NEUROLOGICAL: Cranial nerves II through XII grossly intact. Normal speech, normal gait, sensation intact and the same diffusely, 5/5 strength upper and lower extremities, R arm and leg weaker then the left, patients baseline PSYCH: Normal mood, normal affect. SKIN: Warm, dry, normal turgor, no rashes or lesions noted LABS CBC, BMP 08/21/18 06:44 08/22/18 06:40 HOSPITAL COURSE: Date of Admission:08/21/18 Patient is a 43 y/o female with a history of IDDM, CVA x3, Moyamoya, Graves disease, HLD who presented for syncope. Patient was evaluated by neuro and a CTA of head and neck was done. These images were compared to her previous CTA's done by her neurosurgeon adn there was no change. patient instructed to follow up as an outpatient for any further MRI or EEG. Patients T3 elevated at 51. Called patients forklift driver and last visit with them the T3 was also in the 50's. at that time they switched patient to methimazole. Patient's A1C 9. Importance of monitoring glucose and treating diabetes appropriately discussed. Spoke with patients neurosurgeon service and discussed findings. Patient was supposed to have a surgery for the stenosis in her head in August. Agriculture Laboratory Technician stated she would not be cleared for surgery with her A1C. Patient vitals stable and stable for discharge. CTA head and neck: calcified plaque at right common carotid bifurcation, small also in left, tapering of right and left internal carotid artery with decreased enhancement, faint enhancement of intracranial anterior arterial circulation limiting eval, significant enlarged thyroid gland CXR: no acute pathology Carotid doppler: moderate size plaque at right common carotid bifurcation measuring 6 mm without hemodynamic significant stenosis, bilaterally Head CT: no significant interval change or acute pathology, left middle cerebral artery territory encephalomalacia with ex vacuo dilitation of left later ventrile as well as a right caudate head chronic lacunar infarct Date of Discharge: 08/22/18 Minutes to complete discharge: 45 Discharge Summary Reason For Visit: SYNCOPE AND COLLAPSE Current Active Problems Moyamoya (Acute) Syncope and collapse (Acute) Condition: Improved - Instructions Diet, Activity, Other Instructions: You were admitted to the hospital after you passed out. While you were here we did imaging of your head. We compared this imaging to imaging that you had done with your Neuro surgeon in the past year. There is no changes at this time and you are safe to go home. You should make an appointment to follow up with him Dr. Frankel. You can also make an appointment with Dr. Obregon to have any further imaging done, such as a EEG or MRA. Please make this appointment within one week. While you were here we also had an forklift driver evaluate you. Please continue your home medications. Please follow up with your forklift driver for your next appointment or within one week. With your neurologic history YOU SHOULD NOT DRIVE. It is unsafe for you to drive at this time and you should avoid it. Please make an appointment without your primary care physician to follow up within one week. Please continue your home medications if you prescribe. Return to the Emergency Department if you have nay nausea, vomiting, dizziness, seizures, or shortness of breath. Referrals: enrique frankel [Other] Rubia Obregon MD [Staff Physician] - Darlin Alejandro MD [Staff Physician] - Disposition: HOME - Home Medications Comprehensive Discharge Medication List: Ambulatory Orders Atorvastatin Ca [Lipitor] 10 mg PO HS 06/02/18 Insulin Glargine,Hum.rec.anlog [Lantus Solostar PEN -] 18 units SQ HS 06/02/18 Methimazole [Tapazole -] 10 mg PO DAILY 06/02/18 Nifedipine [Procardia Xl] 60 mg PO DAILY 06/02/18 metFORMIN HCL [Metformin HCl] 500 mg PO BID 06/02/18 Acetaminophen [Tylenol -] 500 mg PO Q6H #30 tablet 06/05/18 Aspirin [Adult Aspirin Regimen] 81 mg PO DAILY #30 tablet. 06/05/18 Insulin Sliding Scale [Novolog Vial Sliding Scale -] See Protocol SQ TIDAC #1 pen 06/05/18 Glipizide 5 mg PO BID 08/21/18 This patient is new to me today: No Emergency Visit: No Critical Care patient: No - Discharge Referral [facility]erred to [facility] No
[2018-08-22 17:42] VITALS: BP 139/75; PULSE 79; TEMP 98
[2018-08-24 15:13] LABS: THYROID STIM IMMUNOGLOBULIN 6.51 IU/L (0.00-0.55)
== END 2018-08-22 17:41 | disposition home or self-care (01) | DRG 92 ==
LOC: JER 20:40 → JERBED 08-21 02:27 → J4S 08-22 00:31
PROVIDERS: ADMIT Internal Medicine; ATTEND Internal Medicine
DX: I67.5 Moyamoya disease (principal); I69.351 Hemiplegia and hemiparesis following cerebral infarction affecting right dominant side; E46 Unspecified protein-calorie malnutrition; R55 Syncope and collapse; E87.6 Hypokalemia; E05.90 Thyrotoxicosis, unspecified without thyrotoxic crisis or storm
CPT/HCPCS: 36415; 70450-TC; 70496-TC; 70498-TC; 71045-TC-FY; 80048; 80053; 80307; 82550; 82962; 83036; 83735; 84100; 84436; 84439; 84443; 84445; 84479; 84481; 84484; 84703; 85025; 85027; 85610; 86376; 93005; 93010; 93306-TC; 93880-TC; 99285-25; J0131